=== PATIENT | male | born 1960 | race Caucasian/White ===

== ENCOUNTER 2019-02-03 08:49 | Outpatient (RCR) | payer OTHER, SELFPAY ==
--- NOTE | 2019-02-03 09:50 | PTOPEVAL ---
Thank you for referring this patient to [facility][Note 3]. Please review, sign, date and return this plan of care GLADYS. I agree with and certify that the following plan of care is medically necessary. Referring Physician Date Admitting Provider: Attending Provider: PHYSICIAN NOT ON STAFF Referring Provider: *PT Outpatient Evaluation Start: 02/03/19 09:03 Freq: Status: Active Protocol: Document 02/03/19 09:04 SAILAJA (Rec: 02/03/19 09:25 SAILAJA [email or web address]) Therapy Assessment Status Assessment Status Assessment Status Evaluation Evaluation Information Problem Diagnosis s/p right shoulder Onset 01/08/19 Subjective Information Pt. underwent surgery on 01/08 Query Text:As Reported By Patient to remove bone spurs and Family patch the rotator cuff. He is currenlty on a 5# restriction . He reports pain comes and goes in the right shoulder. He states that his goal for therapy is to be able to lift the arm overhead with little pain. 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 . He reports he worked till surgery date. He is currently off work. Pain Assessment Pain Scale Pain Scale Used Numeric (1 - 10) Self Report Pain Assessment Right Shoulder(s) Reported Pain Level 4 Pain Description Aching Pain Frequency Continuous Current Pain Intensity 4 Lowest Pain Intensity 4 Greatest Pain Intensity 6 Other Pain Aggravating Factors any movement away from his body Pain Relief Interventions Used By Inactivity/Rest Patient Pain Score Pain Score 4: Self Report Upper Extremity Range of Motion General Upper Extremity Range of Motion Gross Upper Extremity Range of Motion right shoulder flexion AROM Com
--- NOTE | 2019-03-14 08:47 | PTOPEVAL ---
Thank you for referring this patient to [facility]. Please review, sign, date and return this plan of care GLADYS. I agree with and certify that the following plan of care is medically necessary. Referring Physician Date Admitting Provider: Attending Provider: PHYSICIAN NOT ON STAFF Referring Provider: *PT Outpatient Evaluation Start: 02/03/19 09:03 Freq: Status: Active Protocol: Document 03/14/19 08:20 SAILAJA (Rec: 03/14/19 08:41 SAILAJA [email or web address]) Therapy Assessment Status Assessment Status Assessment Status Re-evaluation Evaluation Information Problem Diagnosis s/p right shoulder surgery Onset 01/08/19 Subjective Information Pt. denies pain. He reports Query Text:As Reported By Patient/ that he still has weight Family restrictions and states that he still has some weakness. He reports that he would like to continue treatment in order to improve u.e. strength. Pain Assessment Self Report Self Report Pain Level 0 Pain Score Pain Score 0: Self Report Upper Extremity Range of Motion General Upper Extremity Range of Motion Gross Upper Extremity Range of Motion right shoulder flexion AROM Comments 160 degrees, right shoulder ER 90 degrees, right shoulder IR 70 degrees. Upper Extremity Muscle Strength Testing General Upper Extremity Strength Gross Upper Extremity Strength Comments right shoulder flexion 4/5, right shoulder abduction 4/5, right shoulder ER 4/5 PT Clinical Summary Clinical Summary Protocol: PTEVCODE Clinical Summary Pt. demonstrates excellent progress in regards to ROM and strength. Continue to note weakness at the right proximal u.e. Goals continue to be progressed toward and pt. has met majority of goals. New goals established on this date and recommend continued treatment to further imrpove strength to transition pt. back to work related duties. PT Services Indicated Yes Rehabilitation Potential Excellent Potential Barriers to Goal Achievements None Support Requirements For Optimal None [place] Patient/Caregiver Informed of Benefits/ Yes Risks of Rehabilitation Patient/Caregiver Participated in Plan Yes of Care
--- NOTE | 2019-03-28 08:23 | PCPTNOTE ---
03/28/29- pt cancelled apt. reason not stated.-.
--- NOTE | 2019-04-15 10:56 | PTOPEVAL ---
Thank you for referring this patient to [facility]. Please review, sign, date and return this plan of care GLADYS. I agree with and certify that the following plan of care is medically necessary. Referring Physician Date Admitting Provider: Attending Provider: PHYSICIAN NOT ON STAFF Referring Provider: *PT Outpatient Evaluation Start: 02/03/19 09:03 Freq: Status: Active Protocol: Document 04/15/19 10:00 [facility] (Rec: 04/15/19 10:55 [facility] [id number]) Therapy Assessment Status Assessment Status Assessment Status Discharge Evaluation Information Problem Diagnosis s/p R shoulder surgery Additional Evaluation Detail quick dash = 0% functional deficits Subjective Information mr. irene reports he feels Query Text:As Reported By Patient/ good this date. he reports Family no pain in the R shoulder for more than 2-3 weeks. he reports he has been cleared to return to work beginning next week. Pain Assessment Timing of Pain Assessment Timing of Pain Assessment Assessment Self Report Self Report Pain Level 0 Pain Score Pain Score 0: Self Report Upper Extremity Range of Motion General Upper Extremity Range of Motion Gross Upper Extremity Range of Motion 155 degrees arom R shoulder Comments flexion 90 degrees arom R shoulder ER functional reach to the lwoer cervical spine and lower thoracic spine with the R UE. Upper Extremity Muscle Strength Testing General Upper Extremity Strength Gross Upper Extremity Strength Comments 5/5 R shoulder and elbow strength patient lifts 22.5lb crate with ease and safe mechanicsfrom floor to waist and carries for 5 minutes PT Clinical Summary Clinical Summary Protocol: PTEVCODE Clinical Summary mr. irene tolerates therapy well this date. as of today, he has been cleaed by his MD to return to work beginning next week. he presents with 5/ 5 R shoulder and elbow strength and funcitonal lifting and carrying ability. he has met all goals, and would do well to DC skilled PT at this time and continue with HEP ind
== END 2019-04-15 13:08 | disposition home or self-care (01) ==
LOC: CHSPT 08:49
DX: Z47.89 Encounter for other orthopedic aftercare (principal)
CPT/HCPCS: 97014; 97110; 97140; 97161; 97530; G0283

== ENCOUNTER 2019-12-28 09:24 | Emergency (ER) | payer OTHER, SELFPAY ==
--- NOTE | ~2019-12-28 | XR_ITS ---
EXAMINATION: XR ankle RT min 3V INDICATION: Right ankle pain, prior ankle fracture TECHNIQUE: Four views of the right ankle are obtained. 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 No acute fracture is identified. Bone alignment is normal. Soft tissue swelling is seen surrounding the ankle. Dorsal and plantar mohan caneal enthesophytes are noted. IMPRESSION: 1. Sequela of prior ankle fractures without acute osseous abnormality identified. Reviewed, dictated and finalized at location A. S [employer] IMPRESSION: 1. Sequela of prior ankle fractures without acute osseous abnormality kazie celeste
[2019-12-28 09:30] VITALS: BP 136/90; PULSE 67; RESP 14; TEMP 36.9; O2SAT 99
--- NOTE | 2019-12-28 10:08 | ED.LOWEXIN ---
HPI - Extremity Injury (Lower) General Chief Complaint: Extremity Injury, Lower Stated Complaint: right ankle painful/swollen Time Seen by Provider: 12/28/19 09:52 Source: patient and RN notes reviewed Mode of arrival: ambulatory Limitations: no limitations History of Present Illness HPI Narrative: Patient presents today complaining of right-sided ankle pain. He rolled his ankle on a block yesterday at 1630. He has been ambulatory for small amounts of time since then. History of fracture x2. Last fracture was approximately 20 years ago. Has not required surgery with either previous fracture. Denies numbness or tingling in the leg or foot. Currently rates pain 3/10. He has been wearing an ankle brace. He has not tried ice or any [id number] medications prior to arrival. MD complaint: ankle injury Related Data Home Medications Medication Instructions Recorded Confirmed amlodipine 10 mg PO DAILY 12/28/19 12/28/19 hydralazine 25 mg PO TID 12/28/19 12/28/19 lisinopril 20 mg PO DAILY 12/28/19 12/28/19 metoprolol succinate 12.5 mg PO DAILY 12/28/19 12/28/19 simvastatin 20 mg PO DAILY 12/28/19 12/28/19 Allergies Allergy/AdvReac Type Severity Reaction Status Date / Time iohexol Allergy Redness of Verified 12/28/19 09:41 [From contrast - CT, X-RAY] Skin Penicillins Allergy Unknown Verified 12/28/19 09:40 Review of Systems Review of Systems: Narrative: CONSTITUTIONAL: Denies body aches, fever, chills, or sweats. EYES: Denies visual changes, redness, or discharge. ENT: Denies rhinorrhea, congestion, sore throat, or otalgia. CARDIOVASCULAR: Denies chest pain, palpitations, or edema. RESPIRATORY: Denies cough or dyspnea. GASTROINTESTINAL: Denies abdominal pain, nausea, vomiting, or diarrhea. GENITOURINARY: Denies dysuria or hematuria. SKIN: Denies rash, itching, or wounds. MUSCULOSKELETAL: Denies back pain, or myalgia. + Right ankle pain NEUROLOGIC: Denies headache, numbness, tingling, or weakness. PSYCH: Denies depression or anxiety. [facility] Past Medical History Medical History (Updated 12/28/19 @ 10:13 by Hortencia Torres, SALES DONOR RECRUITMENT REPRESENTATIVE, ) Hyperlipidemia Hypertension Comments At time of signature, I have reviewed and agree with nursing past medical, surgical, social and family history unless otherwise noted. Please see nursing chart for further information. There is no relevant family history pertinent to the presenting complaint Exam Narrative: Exam Narrative: GENERAL: Well-appearing, well-nourished, and in no acute distress. HEAD: Normocephalic, atraumatic. EYES: EOMI. No redness or drainage. Conjunctivae normal. ENT: Mucous membranes pink and moist. NECK: Normal AROM. CHEST: No respiratory distress. EXTREMITIES: Right ankle: No bony tenderness to the medial or lateral malleolus. Soft tissue tenderness just anterior and inferior to the lateral malleolus with mild edema. No posterior tenderness. No tenderness to the foot. Distal sensation intact. Capillary refill normal. Pedal pulse normal. Flexion extension of the ankle is not painful, but patient describes it is stiff. Internal and external rotation of the ankle elicits some pain. SKIN: Warm, dry, no rash. Capillary refill normal. Normal skin turgor. NEURO: No focal deficits. Alert and oriented x3. Gait steady. PSYCH: Normal affect. No signs of depression or anxiety. Course Vital Signs Vital signs: Vital Signs Temperature 98.4 F 12/28/19 09:30 Pulse Rate 67 12/28/19 09:30 Respiratory Rate 14 12/28/19 09:30 Blood Pressure 136/90 12/28/19 09:30 Pulse Oximetry 99 12/28/19 09:30 Temperature 98.4 F 12/28/19 09:30 Pulse Rate 67 12/28/19 09:30 Respiratory Rate 14 12/28/19 09:30 Blood Pressure 136/90 12/28/19 09:30 Pulse Oximetry 99 12/28/19 09:30 Reviewed. Pt has been instructed to follow up with his PCP regarding his elevated blood pressure today. MDM - Extremity Injury (Lower) Differential Diagnosi
== END 2019-12-28 10:22 | disposition home or self-care (01) ==
PROVIDERS: Emergency Provider Nurse Practitioner; PCP Physician Assistant
DX: S93.401A Sprain of unspecified ligament of right ankle, initial encounter (principal); X50.9XXA Other and unspecified overexertion or strenuous movements or postures, initial encounter; E78.5 Hyperlipidemia, unspecified; I10 Essential (primary) hypertension
CPT/HCPCS: 73610; 99213; G0463

== ENCOUNTER 2021-01-03 14:49 | Outpatient (RCR) | payer OTHER, SELFPAY ==
--- NOTE | 2021-01-03 15:46 | PTOPEVAL ---
Thank you for referring Reginaldo Alejandra to [facility].? The patient is scheduled to be seen for therapy? _1___x/week for 4 visits. Please review, sign, date and return this plan of care GLADYS. I agree with and certify that the following plan of care is medically necessary. Referring Physician Date Admitting Provider: Attending Provider: Sanchez Urbano, Referring Provider: *PT Outpatient Evaluation Start: 01/03/21 15:01 Freq: Status: Active Protocol: Document 01/03/21 15:04 SAILAJA (Rec: 01/03/21 15:46 SAILAJA [id number]) Therapy Assessment Status Assessment Status Assessment Status Evaluation Outpatient Past Medical History Cardiovascular History Hx Hypercholesterolemia Yes Hx Hypertension Yes Gastrointestinal History Hx Cholecystectomy Yes Hx Hernia Yes: umbilical Musculoskeletal History Hx Joint Replacement Yes: right partial knee replacement Hx Orthopedic Surgery Yes: bilateral shoulder Hx Spinal Surgery Yes: lumbar HEENT History Hx Tonsillectomy Yes Other History Hx Cancer Yes: tonsil Evaluation Information Problem Diagnosis left knee pain Onset 06/03/20 Subjective Information Pt. reports that he noticed a Query Text:As Reported By Patient/ gradual onset of pain about 7 Family months ago. He reports he underwent MRI that revealed arthritis and meniscus tear. Pt. reports pain is increased with walking and standing. He states that stairs are most difficult. He reports that he only has a small amount of steps at home. He reports that he cannot stand very long due to pain. His goal for therapy is to prolong having any knee replacement. Diagnostic Tests X-Rays For This Problem Yes Prior Level of Function Activity Level (Last 3 Months) Activity of Daily Living Ability Independent Indoor/Home Mobility Independent Community Mobility Independent Stairs Ability Independent Functional Cognition (Planning, Shopping Independent , Taking Medications) Cooking Yes Cleaning Yes Laundry Yes Shopping Yes Driving Yes Comments Additional Prior Level of Function Pt. reports recent epsiodes of
== END 2021-01-24 13:59 | disposition home or self-care (01) ==
LOC: CHSPT 14:49
PROVIDERS: Visit Provider Orthopaedic Surgery
DX: M17.12 Unilateral primary osteoarthritis, left knee (principal)
CPT/HCPCS: 97014; 97110; 97112; 97161; G0283

== ENCOUNTER 2021-03-04 08:04 | Outpatient (CLI) | payer OTHER, SELFPAY ==
--- NOTE | 2021-03-12 15:52 | WPDSLEEPSTUD ---
Sleep Study Date of Study: 03/04/21 Ordering Provider: Shubham Siddiqui MD Interpreting Physician: Pilar Galdamez MD Sleep Study Type: Split Polysomnogram Height: 1.78 m Weight: 119.748 kg Body Mass Index: 37.8 Neck Circumference (inches): 16 [place]: 10 Reason for Sleep Study Hypertension, occasionally falls asleep at work Sleep History Reginaldo Alejandra is a 60 year old man with hypertension. He rarely awakens at night with heartburn, belching or coughing. He does not snore and he does not snore loudly enough that others complain. He denies having difficulty sleeping with the cold. He rarely wakes up gasping for breath at night. He does not have breathing problems at night reported to him by others. He does not sweat excessively at night. He occasionally notices his heart pounding or beating irregularly night. He rarely falls asleep during the day, rarely falls asleep involuntarily and never falls asleep while driving. He does not have loss of muscle tone was strong emotion. He does not have daytime difficulties due to excessive sleepiness. He does not feel paralyzed on waking or falling asleep. He rarely has vivid dreamlike scenes upon awakening or falling asleep. He does not feel afraid to go to sleep. He does not have nightmares. He rarely remembers his dreams. He rarely has racing thoughts. He does not feel sad, depressed or anxious. He rarely has muscular tension. He does not notice parts of his body jerking and he does not kick at night. He rarely has crawling and aching feelings in his legs, rarely has any kind of leg pain at night. He does not have morning jaw pain. He does not grind his teeth during sleep. He occasionally has bothered by pain during the day. He rarely is awakened by pain during the night. He rarely wakes up feeling stiff in the morning with sore or achy muscles. He rarely wakes up with pain in the neck and spine. He has headaches, fatigue and dizziness. He does not have morning headaches. He has renal artery stenosis. 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 Petey Lawrence who requested a sleep study in 2019 but this never happened. Another sleep study of a home sleep test was ordered by HENRIQUE Marx. He tried a home sleep test which did not work and he was referred to in lab sleep study at [facility] but during COVID this was cancelled. Normal bedtime 10:00 p.m. falling asleep within a few minutes. He wakes at 5:20 a.m.. Weekend schedule is similar, goes to bed at 10:00 p.m. wakes at 6:30 a.m.. He estimates getting 6 to 6-1/2 hours of sleep at night he takes naps in the afternoon or evening. A short nap may be refreshing. Most of the time he feels good in the morning. Habits: Caffeine 132 oz tea daily. No alcohol or recreation drugs. 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 Surgical History Surgical History (Updated 03/14/21 @ 09:47 by Pilar Galdamez MD) Hx of tonsillectomy right side, 2003, due to cancer Social History Social History Smoking status: Never smoker Medications Home Medications Medication Instructions Recorded Confirmed Type amlodipine 10 mg PO DAILY 12/28/19 02/07/21 History hydralazine 25 mg PO TID 12/28/19 02/07/21 History lisinopril 20 mg PO DAILY 12/28/19 02/07/21 History metoprolol succinate 12.5 mg PO DAILY 12/28/19 02/07/21 History simvastatin 20 mg PO DAILY 12/28/19 02/07/21 History eszopiclone 2 mg tablet 2 mg PO QHS #1 tablet 02/07/21 02/07/21 Rx vitamins A,C,N-ujpk-omivhm 14,320 1 cap PO QAM AND QPM 02/07/21 02/07/21 History unit-226 mg-200 unit capsule Sleep Procedure This test was performed using the [employer] multiple channel system including EOG, EEG, submental EMG, EKG, nasal and oral airflow using thermistors a
[2021-03-14 09:34] VITALS: BMI 37.8
== END 2021-03-05 07:03 | disposition home or self-care (01) ==
PROVIDERS: PCP Physician Assistant; Visit Provider Internal Medicine Pulmonary Disease
DX: G47.10 Hypersomnia, unspecified (principal); G47.33 Obstructive sleep apnea (adult) (pediatric)
CPT/HCPCS: 95811

== ENCOUNTER 2021-05-02 07:45 | Outpatient (RCR) | payer OTHER, SELFPAY ==
--- NOTE | 2021-05-02 08:55 | PTOPEVAL ---
Thank you for referring Reginaldo Alejandra to [facility].? The patient is scheduled to be seen for therapy? ____x/week for ___ weeks. Please review, sign, date and return this plan of care GLADYS. I agree with and certify that the following plan of care is medically necessary. Referring Physician Date Admitting Provider: Attending Provider: Sanchez Urbano, Referring Provider: *PT Outpatient Evaluation Start: 05/02/21 07:39 Freq: Status: Active Protocol: Document 05/02/21 07:50 ACR (Rec: 05/02/21 08:55 [facility] [id number]) Therapy Assessment Status Assessment Status Assessment Status Evaluation Outpatient Past Medical History Cardiovascular History Hx Hypercholesterolemia Yes Hx Hypertension Yes Gastrointestinal History Hx Cholecystectomy Yes Hx Hernia Yes: umbilical Musculoskeletal History Hx Joint Replacement Yes: right partial knee replacement Hx Orthopedic Surgery Yes: bilateral shoulder Hx Spinal Surgery Yes: lumbar HEENT History Hx Tonsillectomy Yes Other History Hx Cancer Yes: tonsil Evaluation Information Problem Diagnosis L TKA Onset 04/14/21 Subjective Information Patient states that he Query Text:As Reported By Patient/ underwent a TKA on 04/14/21 and Family did not have any issues. Patient states he has not had any home health since the surgery. Patient states that he is still very weak and unstable. He states that he is not taking any pain pills. He states that he is taking Tylenol to help with some of the pain. He states he is unable to walk or stand for a period of time, along with navigating steps without pain. Patient states that his goal for therapy is to return to work and be semi-normal. 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
--- NOTE | 2021-06-09 13:39 | PTOPEVAL ---
Thank you for referring Reginaldo Alejandra to [facility].? The patient is scheduled to be seen for therapy? ____x/week for ___ weeks. Please review, sign, date and return this plan of care GLADYS. I agree with and certify that the following plan of care is medically necessary. Referring Physician Date Admitting Provider: Attending Provider: Sanchez Urbano, Referring Provider: *PT Outpatient Evaluation Start: 05/02/21 07:39 Freq: Status: Active Protocol: Document 06/09/21 12:35 [facility] (Rec: 06/09/21 13:39 [facility] [id number]) Therapy Assessment Status Assessment Status Assessment Status Re-evaluation Outpatient Past Medical History Cardiovascular History Hx Hypercholesterolemia Yes Hx Hypertension Yes Gastrointestinal History Hx Cholecystectomy Yes Hx Hernia Yes: umbilical Musculoskeletal History Hx Joint Replacement Yes: right partial knee replacement Hx Orthopedic Surgery Yes: bilateral shoulder Hx Spinal Surgery Yes: lumbar HEENT History Hx Tonsillectomy Yes Other History Hx Cancer Yes: tonsil Evaluation Information Problem Diagnosis L TKA Onset 04/14/21 Additional Evaluation Detail LEFS = 45% functionally declined Subjective Information patient reports he feels Query Text:As Reported By Patient/ Alright this date. he reports Family he is still concerned about his stair ambulation, and would like to continue skilled PT with focus to achieve pain free and normal stair ambulation performance. Pain Assessment Timing of Pain Assessment Timing of Pain Assessment Assessment Pain Scale Pain Scale Used Numeric (1 - 10) Self Report Pain Assessment Left Knee(s) Reported Pain Level 1 Greatest Pain Intensity 4 Pain Score Pain Score 1: Self Report Interventions Used Interventions Used By Clinicians Activity or ADL's,Compression Pump,Education,Exercise,Ice Lower Extremity Range of Motion General Lower Extremity Range of Motion Gross Lower Extremity Range of Motion 0-125 degrees arom L knee Comments mobility Lower Extremity Muscle Strength Testing General Lower Extremity Strength Gross Lower Extremity Strength 5/5 L hip flex 5/5 L knee flex 5/5 L knee ext 5/5 L ankle DF Muscle Length Testing Muscle Length Testing Left Hamstring Length 5 Query Text:(90 - 90 Positi
--- NOTE | 2021-06-28 09:47 | PTOPEVAL ---
Thank you for referring Reginaldo Alejandra to [facility].? The patient is scheduled to be seen for therapy? ____x/week for ___ weeks. Please review, sign, date and return this plan of care GLADYS. I agree with and certify that the following plan of care is medically necessary. Referring Physician Date Admitting Provider: Attending Provider: Sanchez Urbano, Referring Provider: *PT Outpatient Evaluation Start: 05/02/21 07:39 Freq: Status: Active Protocol: Document 06/28/21 09:00 [facility] (Rec: 06/28/21 09:47 [facility] [email or web address]) Therapy Assessment Status Assessment Status Assessment Status Discharge Outpatient Past Medical History Cardiovascular History Hx Hypercholesterolemia Yes Hx Hypertension Yes Gastrointestinal History Hx Cholecystectomy Yes Hx Hernia Yes: umbilical Musculoskeletal History Hx Joint Replacement Yes: right partial knee replacement Hx Orthopedic Surgery Yes: bilateral shoulder Hx Spinal Surgery Yes: lumbar HEENT History Hx Tonsillectomy Yes Other History Hx Cancer Yes: tonsil Evaluation Information Problem Diagnosis L TKA Onset 04/14/21 Additional Evaluation Detail LEFS = 27% functionally declined Subjective Information patient reports he feels good Query Text:As Reported By Patient/ this date. he reports he Family does have some tightness in the knee, and some pain/ tightness that is still increased with long distance/ time walking. he reports however, he was able to go to the zoo over the weekend and walk with his family. he reports stairs are eaiser, and he is ready to DC skilled PT this date. Pain Assessment Timing of Pain Assessment Timing of Pain Assessment Assessment Pain Scale Pain Scale Used Numeric (1 - 10) Self Report Pain Assessment Left Knee(s) Reported Pain Level 1 Pain Score Pain Score 1: Self Report Interventions Used Interventions Used By Clinicians Activity or ADL's,Compression Pump,Education,Exercise,Ice Lower Extremity Muscle Strength Testing General Lower Extremity Strength Gross Lower Extremity Strength 5/5 L knee strength Gait Assessment Gait Pattern Assessment Gait Pattern No Deviations/Normal 6 Minute Walk Total Distance (feet) 1,250 6 Minute Walk Gait Spe
== END 2021-06-28 09:43 | disposition home or self-care (01) ==
LOC: CHSPT 07:45
PROVIDERS: PCP Physician Assistant; Visit Provider Orthopaedic Surgery
DX: Z96.652 Presence of left artificial knee joint (principal)
CPT/HCPCS: 97016; 97110; 97116; 97161; 97530

== ENCOUNTER 2024-03-26 08:58 | Outpatient (RCR) | payer OTHER, SELFPAY ==
--- NOTE | 2024-03-26 09:57 | OPREHPOC ---
Outpatient Therapy Plan of Care This is a Multidisciplinary Plan of Care that may contain components documented by all disciplines (PT, OT, and ST.) PT Problem 1 PT Problem #1 Knowledge Deficit PT Goal 1 Goal / Goal Update The patient will be independent in a home exercise program. Target Visit 2 PT Problem 2 PT Problem #2 Pain PT Goal 1 Goal / Goal Update The patient will report no greater than 2/10 right shoulder pain with lifting household items and donning a coat. Target Visit 6 PT Problem 3 PT Problem #3 Impaired Functional Mobility PT Goal 1 Goal / Goal Update The patient will demonstrate 20% or less self perceived disability per the Quick DASH questionnaire. Target Visit 6 PT Goal 2 Goal / Goal Update The patient will demonstrate the ability to lift 3 # overhead with 2/10 or less right shoulder pain. Target Visit 12 PT Problem 4 PT Problem #4 Impaired Range of Motion PT Goal 1 Goal / Goal Update The patient will demonstrate at least 140 degrees of right shoulder flexion AROM to improve overhead reaching. The patient will demonstrate at least 120 degrees of right shoulder abduction AROM without a painful arc. Target Visit 6 PT Problem 5 PT Problem #5 Impaired Strength PT Goal 1 Goal / Goal Update The patient will demonstrate at least 4/5 right shoulder strength without pain elicited to improve lifting and carrying ability. Target Visit 12
--- NOTE | 2024-03-26 09:57 | PTOPEVAL1 ---
Assessment and note entered by Anat Weaver, PT Evaluation Information Assessment Status Evaluation ICD-10 Condition Codes (PT) Pain in right shoulder M25.511 Subjective Information Reginaldo Alejandra reports he felt a pop in his right shoulder around 03/04/24 when he was putting his coat on. He has been having pain in the front of the shoulder with donning a coat, pulling blankets up, and reaching out. He notes if he does not use his arm he does not have pain however, it is his dominant arm. He went to the doctor last week and was told he may have injured his rotator cuff. He was referred to PT. He does report a past medical history of 2 other right shoulder surgeries for a distal clavicle excision and then for a clean up. He has been avoiding lifting anything since the injury. Reported Pain Level Pain Score 3: Self Report Assessment PT Clinical Summary Reginaldo Alejandra presents with right shoulder pain after hearing a pop when he donned his coat with the right arm in an abducted and externally rotated position around 03/04/24. He is having difficulty with lifting the right arm forward or to the side, donning coats, pulling, and lifting. He objectively demonstrates tenderness on the anterior right shoulder, decreased and painful right shoulder AROM, decreased right shoulder strength, positive special tests consistent with tendonitis in the supraspinatus, shoulder impingement, and labral involvement. He will benefit from skilled PT to address these limitations. Plan of Care Interventions Electrical Stimulation,Hot Pack/Cold Pack,Manual Therapy,Neuro Re-education,Patient/Caregiver Education,Therapeutic Activities,Therapeutic Exercise PT Services Indicated Yes Treatment Frequency and 2 times per week for 6 visits Duration These treatments will address the objective and functional deficits as defined above. The patient will be advanced safely and appropriately in order for the patient to progress towards his/her prior level of function. Additional exercises will be introduced and as well as a comprehensive home exercise program upon discharge, if needed, ?to ensure carryover of functional gains achieved in the clinic. This treatment plan has been reviewed and agreement upon by the patient.
--- NOTE | 2024-04-17 09:05 | OPREHPOC ---
Outpatient Therapy Plan of Care This is a Multidisciplinary Plan of Care that may contain components documented by all disciplines (PT, OT, and ST.) PT Problem 1 PT Problem #1 Knowledge Deficit PT Goal 1 Goal / Goal Update The patient will be independent in a home exercise program. Target Visit 2 Progress Met PT Problem 2 PT Problem #2 Pain PT Goal 1 Goal / Goal Update The patient will report no greater than 2/10 right shoulder pain with lifting household items and donning a coat. Target Visit 12 Progress Not Met PT Problem 3 PT Problem #3 Impaired Functional Mobility PT Goal 1 Goal / Goal Update The patient will demonstrate 20% or less self perceived disability per the Quick DASH questionnaire. Target Visit 6 Progress Met PT Goal 2 Goal / Goal Update The patient will demonstrate the ability to lift 3 # overhead with 2/10 or less right shoulder pain. Target Visit 12 Progress Not Met PT Problem 4 PT Problem #4 Impaired Range of Motion PT Goal 1 Goal / Goal Update The patient will demonstrate at least 140 degrees of right shoulder flexion AROM to improve overhead reaching. The patient will demonstrate at least 120 degrees of right shoulder abduction AROM without a painful arc. Target Visit 12 Progress Partially Met PT Problem 5 PT Problem #5 Impaired Strength PT Goal 1 Goal / Goal Update The patient will demonstrate at least 4/5 right shoulder strength without pain elicited to improve lifting and carrying ability. Target Visit 12 Progress Partially Met
--- NOTE | 2024-04-17 09:06 | PTOPREEVAL ---
Assessment and note entered by JT File, PT Evaluation Information Assessment Status Re-evaluation ICD-10 Condition Codes (PT) Pain in right shoulder M25.511 Subjective Information patient reports the shoulder is alright in general. he reports he has slight pain/discomfort in it today. he reports it has its moments where it is better. he reports he feels no pain when working at his waist level, but at shoulder level or above his pain increases. Reported Pain Level Pain Score 1: Self Report Pain Score 0: Self Report Assessment PT Clinical Summary mr. irene presents to skilled PT for his 6th skilled PT visit today. he displays significant improvements in R shoulder rom, strength, and decreased pain. he has met several goals for skilled PT, but also continues to have functional, rom, and strength deficits that he would benefit from continued skilled PT to return to full prior level functional activity performance/quality of life. Plan of Care Interventions Electrical Stimulation,Hot Pack/Cold Pack,Manual Therapy,Neuro Re-education,Patient/Caregiver Education,Therapeutic Activities,Therapeutic Exercise PT Services Indicated Yes Treatment Frequency and continue skilled PT 2x weekly for 6 more visits Duration These treatments will address the objective and functional deficits as defined above. The patient will be advanced safely and appropriately in order for the patient to progress towards his/her prior level of function. Additional exercises will be introduced and as well as a comprehensive home exercise program upon discharge, if needed, ?to ensure carryover of functional gains achieved in the clinic. This treatment plan has been reviewed and agreement upon by the patient.
--- NOTE | 2024-05-08 09:56 | OPREHPOC ---
Outpatient Therapy Plan of Care This is a Multidisciplinary Plan of Care that may contain components documented by all disciplines (PT, OT, and ST.) PT Problem 1 PT Problem #1 Knowledge Deficit PT Goal 1 Goal / Goal Update The patient will be independent in a home exercise program. Target Visit 2 Progress Met PT Problem 2 PT Problem #2 Pain PT Goal 1 Goal / Goal Update The patient will report no greater than 2/10 right shoulder pain with lifting household items and donning a coat. Target Visit 12 Progress Met PT Problem 3 PT Problem #3 Impaired Functional Mobility PT Goal 1 Goal / Goal Update The patient will demonstrate 20% or less self perceived disability per the Quick DASH questionnaire. Target Visit 6 Progress Met PT Goal 2 Goal / Goal Update The patient will demonstrate the ability to lift 3 # overhead with 2/10 or less right shoulder pain. Target Visit 12 Progress Not Met PT Problem 4 PT Problem #4 Impaired Range of Motion PT Goal 1 Goal / Goal Update The patient will demonstrate at least 140 degrees of right shoulder flexion AROM to improve overhead reaching. The patient will demonstrate at least 120 degrees of right shoulder abduction AROM without a painful arc. Target Visit 12 Progress Met PT Problem 5 PT Problem #5 Impaired Strength PT Goal 1 Goal / Goal Update The patient will demonstrate at least 4/5 right shoulder strength without pain elicited to improve lifting and carrying ability. Target Visit 12 Progress Met
--- NOTE | 2024-05-08 09:56 | PTOPDC ---
Assessment and note entered by Anat Weaver, PT Evaluation Information Assessment Status Discharge ICD-10 Condition Codes (PT) Pain in right shoulder M25.511 Onset 03/04/24 Subjective Information Reginaldo Alejandra reports his right shoulder is doing much better. He notes that he has a lot more mobility and he can perform daily activities without difficulty. He does note some pain and stiffness this am but it is all over the shoulder from sleeping wrong not a sharp pain in the front of the shoulder like he used to have. He feels he has improved 90% overall and is comfortable with continuing home exercises. Reported Pain Level Pain Score 1: Self Report Assessment PT Clinical Summary Reginaldo Alejandra has completed 12 skilled PT visits for right shoulder pain. He is reporting a 90% overall improvement in the right shoulder since initiating PT. He is no longer limited with ADLs and reports occasional soreness when he lays on the right shoulder the wrong way or reaches back for the seatbelt. He objectively demonstrates improved right shoulder AROM to normal ranges, improved right shoulder strength, and negative special tests. He has met all goals and will be discharged to an independent [facility]. Plan of Care PT Services Indicated No
== END 2024-05-08 11:15 | disposition home or self-care (01) ==
LOC: CHSPT 08:58
PROVIDERS: Visit Provider Physician Assistant
DX: M25.511 Pain in right shoulder (principal)
CPT/HCPCS: 97014; 97110; 97112; 97161; 97530; 97750; G0283

== ENCOUNTER 2024-04-20 13:45 | Emergency (ER) | payer OTHER, SELFPAY ==
[2024-04-20 13:45] VITALS: BP 140/96; PULSE 71; RESP 20; TEMP 36.8; O2SAT 100
--- OUTSIDE RECORDS SUMMARY | 2024-04-20 13:48 | XMS_ITS | Clinical Summary ---
Author Organization [facility] Address [address] [place] [address] Care Team Providers Care Entry Level Programmer Name Role Phone Howard Gonzalez Primary Care Provider [phone] Kain Ferrera Unavailable [phone] Gael Jiménez MD Unavailable [phone] Allergies Active Allergy Reactions Criticality Noted Date Comments Iodinated Contrast Media Rash Medium 04/14/2021 Iodine Hives,Other (See comments),Rash Medium 01/22/2017 Pt states he turned pink Penicillins Other (See comments),Unknown Low 01/22/2017 Childhood unsure of reaction Medications aspirin 81 mg enteric coated tablet Take 1 tablet (81 mg total) by mouth 2 (two) times a day for 28 days Take twice daily for 28 days after surgery starting on post op day 1 and then resume once per day 56 tablet 2 Active furosemide (LASIX) 20 mg tablet TAKE 1 TABLET BY MOUTH EVERY DAY 30 tablet 4 Active amLODIPine (NORVASC) 5 mg tabletIndicati ons:Essential hypertension,H ypercholestero lemia Take 1 tablet (5 mg total) by mouth daily 90 tablet 3 4 025 Active simvastatin (ZOCOR) 20 mg tablet TAKE 1 TABLET BY MOUTH EVERY DAY 90 tablet 2 4 Active lisinopriL (PRINIVIL,ZEST RIL) 40 mg tablet TAKE 1 TABLET BY MOUTH EVERY DAY AT NIGHT 90 tablet 3 5 Active metoprolol XL (TOPROL-XL) 25 mg extended release tabletIndicati ons:Essential hypertension,H ypercholestero lemia TAKE 1 TABLET (25 MG TOTAL) BY MOUTH DAILY. 90 tablet 3 5 Active lisinopriL (PRINIVIL,ZEST RIL) 40 mg tablet Take 1 tablet (40 mg total) by mouth nightly 025 Discontinued metoprolol XL (TOPROL-XL) 25 mg extended release tabletIndicati ons:Essential hypertension,H ypercholestero lemia Take 0.5 tablets (12.5 mg total) by mouth daily 45 tablet 3 4 025 Discontinued Active Problems Problem Noted Date Diagnosed Date HTN (hypertension), benign 02/10/2023 Cardiac arrest 12/22/2022 Abnormal stress test 11/16/2022 DDD (degenerative disc disease), lumbar 01/13/20 Degenerative lumbar spinal stenosis 01/12/2022 Snapping hip syndrome, left 12/14/2021 Congestive heart failure (CMS/HCC) 09/18/2021 Middle insomnia 09/18/2021 Migraine 09/18/2021 Upper respiratory infection 09/18/2021 Primary osteoarthritis of left knee 03/29/2021 Overview (03/29/2021): Added automatically from request for surgery [id number] Restless sleeper 01/30/2020 Morning headaches 01/30/2020 Impingement syndrome of right shoulder 9 Overview (12/19/2018): Added automatically from request for surgery [id number] Arthritis of right acromioclavicular joint 12/19 Overview (12/19/2018): Added automatically from request for surgery [id number] Biceps tendinitis on right 12/19/2018 Overview (12/19/2018): Added automatically from request for surgery [id number] Primary osteoarthritis of right knee 03/15/2018 Overview (03/15/2018): Added automatically from request for surgery [id number] Complex tear of medial menis cus of right knee as current injury 10/25/2017 Overview (10/25/2017): Added automatically from request for surgery [id number] JESUS (obstructive sleep apnea) 01/24/2017 Renal artery stenosis 11/02/2016 Obesity 10/14/2016 Obesity with body mass index 30 or greater 10/13 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 Cephalalgia 08/31/2015 Essential hypertension 08/31/2015 Hypercholesterolemia 08/31/2015 Calculus of kidney 02/29/2012 Immunizations Immunization Administration Dates Next Due Influenza, Quadrivalent, Spl it, Preservative Free, Intramuscular 04/04/2018 Surgical History Surgery Date Site/Laterality Comments OTHER SURGICAL HISTORY Right and Left Shoulders TONSILLECTOMY Tonsillectomy CHOLECYSTECTOMY Cholecystectomy OTHER SURGICAL HISTORY cellutitus/abcess groin LAMINECTOMY laminectomy HERNIA REPAIR Hernia repair SHOULDER ARTHROSCOPY Right SHOULDER ARTHROSCOPY Left KNEE ARTHROSCOPY Right KNEE ARTHROPLASTY Right SHOULDER ARTHROSCOPY Right Medical History Medical History Date Comments Hx Other Medical Tonsil Cancer Hypertension Hypertension Hx Other Medical tonsil cancer; Comments: PLD 12/23/2013 - Hypercholesteremia GERD (gastroesophageal reflux disease) Cancer (CMS/HCC) (HCC) Tonsils, chemo and radiation 2003 Kidney stone kidney stone Sleep apnea no c-pap Cough hx throat cancer Family History Medical History Relation Name Comments Heart disease Brother 1 Heart disease; Cancer Brother 2 Family history of cancer - (Added by TW Conv) Heart disease Father Heart disease; Heart disease Mother Heart disease; Cancer Other 1 Cancer -unknown ; Heart disease Other 2 Heart disease; Cancer Other 3 Family history of Cancer, unknown; Coronary artery disease Other 4 Fami ly history of Coronary artery disease; Relation Name Status Comments Brother 1 Brother 2 Father Mother Other 1 Other 2 Other 3 Other 4 Social History Tobacco Use Types Packs/Day Years Used Date Smoking Tobacco: Never Passive Smoke Exposure: Never Smokeless Tobacco: Never Tobacco Cessation:Counseling Given: Not Answered Alcohol Use Standard Drinks/Week Comments No 0 (1 standard drink = 0.6 oz pur e alcohol) AUDIT-C Answer Date Recorded Q1: How often do you have a drink containing alc ohol? Monthly or less 04/14/2021 Q2: How many drinks containi ng alcohol do you have on a typical day when you are drinking? 3 or 4 04/14/2021 Q3: How often do you have si x or more drinks on one occasion? Never 04/14/2021 Personal Safety Answer Date Recorded Have you ever been in or are you currently in a harmful physical or emotional relationship or is someone making you feel afraid or unsafe? Denies 12/22/2022 Sex and Gender Information Value Date Recorded Sex Assigned at Not on file Legal Sex Male 2:05 AM [employer]ING HOU[employer] WORK[employer] Gender Identity Not on file Sexual Orientation Not on file Obstetrics History Last Filed Vital Signs Vital Sign Reading Time Taken Comments Blood Pressure 124/89 10/31/2023 10:41 AM CDT Pulse 64 10/31/2023 10:41 AM CDT Temperature 36.8 C (98.2 F) 10/31/2023 10:41 AM CDT Respiratory Rate 16 12/23/2022 7:56 AM CDT Oxygen Saturation 95% 10/31/2023 10:41 AM CDT Inhaled Oxygen Concentration - - Weight 119.7 kg (264 lb) 10/31/2023 10:41 AM CDT Height 177.8 cm (5' 10 ) 10/31/2023 10:41 AM CDT Body Mass Index 37.88 10/31/2023 10:41 AM CDT Plan of Treatment Health Maintenance Due Date Last Done Comments Colon Cancer Screening-Colonoscopy 1960 Depression Screening 1960 Hepatitis C Screening 1960 Prostate Cancer Screening-PSA 1960 Hepatitis B Screening 1978 Regular Well Visit/Exam 18-64 1978 Zoster Vaccine (1 of 2) 2010 Influenza Vaccine (#1) 2023 04/04/2018 DTaP/Tdap/Td Vaccine (2 - Td or Tdap) 07/13/2026 07/13/2016 Pneumococcal vaccine <65 Aged Out No longer eligible based on patient's age to complete this topic Medical Devices Implanted Type Area Cardiac Rehabilitation Program Director Device Identifier Shelf Expiration Date Model / Serial / Lot [employer] [id number] Palacos R+G High Viscosity Cement Bone Gentamicin Arthroplasty - [id number] Implanted:Qty: 1 on 04/03/2018 by Sanchez Urbano MD at [facility] [employer] 09/25/2020 [id number] / / [id number] 1024-52-300 Sigma High Performance Tibial Tray Unicondylar Metal Backed Implanted:Qty: 1 on 04/03/2018 by Sanchez Urbano MD at [facility] Right: Knee [employer] [id number] 04/25/2027 1024-52-300 / / [id number] [employer] [id number] Sigma 8mm Cemented Unicompartmental High Performance Knee - [id number] Implanted:Qty: 1 on 04/03/2018 by Sanchez Urbano MD at [facility] Right: Knee [employer] 01/26/2028 [id number] / / [id number] 1024-54-307 Sigma Hp Tibial Insert Fixed Bearing Unicondylar Implanted:Qty: 1 on 04/03/2018 by Sanchez Urbano MD at [facility] Right: Knee [employer] [id number] 04/25/2021 1024-54-307 / / [id number] [employer] 2169-3 Reconstitute Scaffold Large Mesh Surgical Collagen Sterile Latex - [id number] Implanted:Qty: 1 on 01/08/2019 by Sanchez Urbano MD at [facility] Right: Shoulder [employer] 07/26/2021 2169-3 / / [id number] [employer] 2504-1 Regenerate Tendon [place] Suture - [id number] Implanted:Qty: 1 on 01/08/2019 by Sanchez Urbano MD at [facility] Right: Shoulder [employer] 07/26/2019 2504-1 / / [id number] [employer] 2503-A Arthroscopic Delivery System [place] Suture Sterile Disposable - [id number] Implanted:Qty: 1 on 01/08/2019 by Sanchez Urbano MD at [facility] Right: Shoulder [employer] 03/04/2019 2503-A / / [id number] [employer] [id number] Attune Cruciate Retain Cementless Knee Left 9 Component Femoral - [id number] Implanted:Qty: 1 on 04/14/2021 by Sanchez Urbano MD at [facility] Left: Knee [employer] 08/25/2028 [id number] / / [id number] [employer] [id number] Attune 5mm Cruciate Retaining Rotate Platform Knee 9 Insert - [id number] Implanted:Qty: 1 on 04/14/2021 by Sanchez Urbano MD at [facility] Left: Knee [employer] [id number] / / [id number] [employer] [id number] Attune Cementless Rotate Platform Knee 9 Baseplate Tibial - [id number] Implanted:Qty: 1 on 04/14/2021 by Sanchez Urbano MD at [facility] Left: Knee [employer] 12/26/2030 [id number] / / [id number] Insurance [facility] H[facility]/PPO Address: [facility] [id number] [place] [id number] [facility] [place] [address] [facility] Advance Directives For more information, please contact: [phone] * Full Code (Latest Code Status on File) Date Activated Date Inactivated Comments 12/22/2022 1:38 PM 12/23/2022 4:22 PM * Full Code Date Activated Date Inactivated Comments 12/22/2022 7:49 AM 12/22/2022 10:20 AM * Full Code Date Activated Date Inactivated Comments 04/03/2018 1:17 PM 04/04/2018 7:15 PM Care Teams Entry Level Programmer Relationship Specialty Start Date End Date Howard Gonzalez PA [address] [place] [address] PCP - General 01/12/11 Kain Ferrera PA [address] [place] [address] Physician Lockstitch Lining Maker Orthopedic Surgery 04/14/21 Gael Jiménez MD [address] [place] [address] Anesthesiologist Pain Management 01/12/22
--- OUTSIDE RECORDS SUMMARY | 2024-04-20 13:48 | XMS_ITS | Data Portability ---
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 Plan of Treatment Reminders Order Date Submit Date Provider Last Modified By Organization Details Last Modified Time Details Appointments None recorded. Lab rsv (respirato ry syncytial virus), rapid, nasopharyn geal 2023 024 GARDINER In-Office Order, Internal Use Only DO Not Attach Compendium DO Not Attach Compendium, Do Not Delete/merge, [id number] 15:47:39 influenza virus A + B + SARS-CoV-2 (COVID19) Ag panel, rapid IA, upper respirator y specimen 2023 024 georgi In-Office Order, Internal Use Only DO Not Attach Compendium DO Not Attach Compendium, Do Not Delete/merge, [id number] 15:56:12 PSA, serum or plasma 2022 023 GARDINER [facility], [address] [place] [address], [address], 3 17:12:01 Referral physical therapist referral 2024 025 [facility], [address] [facility], [place], [address], 5 12:08:20 gastroente rologist referral 2022 023 SOFI Fajardo MD, [facility], [place], [address], 3 00:32:49 dermatolog ist [facility] 2022 [email or web address] , [address] [facility] , [facility], [place], [address], 3 10:00:38 Procedures None recorded. Surgeries None recorded. Imaging XR, thumb 2022 023 [email or web address] [facility], [address] [facility] [place], [address], 3 11:39:17 US, thigh - pain/swell ing seems to originate in distal medial thigh/quad ricep 2022 023 [facility][1], [address] [facility] [place], [address], 3 14:51:41 Medication Orders naproxen 500 mg tablet 2024 025 [facility]armacy #[id number], [address] [place], [address], 5 15:12:43 azithromyc in 500 mg tablet 2023 024 [facility]/Pharmacy #[id number], [address] [place], [address], 5 14:49:07 Medrol (Oniel) 4 mg tablets in a dose pack 2023 024 [facility]/Pharmacy #[id number], [address] [place], [address], 5 14:49:15 Patient TargetsNo targets recorded. Patient Instructions Encounter Date Encounter Id Patient Instructions Last Modified By Organization Details Last Modified Time 06/13/2022 [id number] A healthy lifestyle: care instructions georgi Not available 06/13/2022 18:23:39 leg and ankle edema: care instructions jnanney Not available 06/13/2022 18:23:04 03/05/2023 [id number] cough: care instructions [email or web address] Not available 03/05/2023 15:28:08 Reason for Referral Rn Intake Referral for M elanocytic nevus of skin Referring Physician: Gabrielle Gonzalez [facility], Encounter Date: 12/05/2022 Php Magento Developer Referral for Esophageal dysphagia food hanging up and esphageal cancer hx... Referring Physician: Gabrielle Gonzalez [facility], Encounter Date: 01/09/2023 Physical Therapist Referral for Pain of right shoulder joint [facility] Date: 03/21/2024 Results Created Date Observation Date Name Description Value Unit Range Abnormal Flag Note LastModifiedBy Organization Detail LastModifiedTime 12/06/1912/07/2022 PSA (SERI AL MONIT OR) prostate specific Ag 1.0 NG/mL 0.0-4. 0 Anjali ECLIA metho dolog y. Accor ding to the Ameri can [employer]o g[employer] iatio n, Serum PSA shoul d decre ase and remai n at undet ectab le level s after radic al prost atect ronni. The AUA defin es bioch emica l recur rence as an initi al PSA value 0.2 ng/mL or great er follo wed by a subse quent confi rmato ry PSA value 0.2 ng/mL or great er. Value s obtai david with diffe rent assay metho ds or kits canno t be used inter [facility] e[facility]osesy . Resul ts canno t be inter prete d as absol walter evide nce of the prese nce or absen ce of selin holly se. Not Available [facility] ([facility]) [address] [facility], [place], [address], 12/07/2022 17:12:01 12/06/1912/07/2022 PSA (SERI AL MONIT OR) pdf . Not Available [facility] ([facility]) [address] [facility], [place], [address], 12/07/2022 17:12:01 03/05/19 24 03/05/2023 rsv (resp irato ry syncy tial virus ), rapid , nasop haryn geal RSV negati ve Not Available In-Office Order Internal Use Only DO Not Attach Compendium DO Not Attach Compendium, Do Not Delete/merge, [id number] 03/05/2023 15:27:40 03/05/19 24 03/05/2023 influ ayden virus A + B + SARS- CoV-2 (COVI D19) Ag panel , rapid IA, upper respi rator y speci men Flu A negati ve Not Available In-Office Order Internal Use Only DO Not Attach Compendium DO Not Attach Compendium, Do Not Delete/merge, [id number] 03/05/2023 15:27:32 03/05/19 24 03/05/2023 influ ayden virus A + B + SARS- CoV-2 (COVI D19) Ag panel , rapid IA, upper respi rator y speci men Flu B negati ve Not Available In-Office Order Internal Use Only DO Not Attach Compendium DO Not Attach Compendium, Do Not Delete/merge, [id number] 03/05/2023 15:27:32 03/05/19 24 03/05/2023 influ ayden virus A + B + SARS- CoV-2 (COVI D19) Ag panel , rapid IA, upper respi rator y speci men Rapid SARS CoV 2 Ag, QL IA, respiratory specimen negati ve Not Available In-Office Order Internal Use Only DO Not Attach Compendium DO Not Attach Compendium, Do Not Delete/merge, [id number] 03/05/2023 15:27:32 05/30/19 23 05/29/2022 MRI, knee, w/o contr ast No observ ation record ed. dtjose manuel [facility] [address] [facility], [place], [address], 05/30/2022 10:36:12 07/20/19 23 07/19/2022 US, knee No observ ation record ed. dtjose manuel [facility] [address] [facility] [address], [place], [address], 07/20/2022 11:40:30 Result Notes None recorded. 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 Not Available [facility] 1 09:35:26 Folliculitis 30673855 Active Not Available [facility] 09:35:26 Backache 933209942 Active Not Available [facility] 09:35:26 Diarrhea 78296186 Active Not Available [facility] 09:35:26 Middle insomnia 40035889 Active Not Available [employer] 09:35:27 Essential hypertension 45313879 Active 2015 Not Available [facility] 1 09:35:26 Angina pectoris 673329550 Active Not Available [facility] 09:35:26 Congestive heart failure 55823619 Active Not Available [facility] 09:35:26 Disorder of vision 47467869 Active Not Available [facility] 09:35:26 Malignant tumor of tonsil 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 Procedures Surgical History Date Name Laterality Status Provider Name and Address Organization Details Recorded Time Back Surgery completed Alondra Yepez MA [facility] 03/12/2014 17:16:07 Hernia Repair completed Alondra Yepez MA [facility] 03/12/2014 17:16:07 Cholecystectomy completed Alondra Yepez MA [facility] 03/12/2014 17:16:07 Other completed Alondra Yepez MA [facility] 03/12/2014 17:16:07 Arthroscopic Surgery completed Alondra Yepez MA [facility] 03/12/2014 17:16:07 Imaging Results Imaging Date Name Status LastModified by Organiz ation Details LastModified Time 05/29/2022 [facility] [address] [place], [address], 05/30/2022 10:36:12 07/19/2022 US, knee completed [facility] [address] [place] [address], [address], 07/20/2022 11:40:30 Procedure Notes None recorded. Medical Equipment None Reported. Allergies Allergen ID Allergen Name Allergen Category Reaction Reaction Severity Criticality Documentation Date Start Date Code Code System Note Provider Name and Address Organization Details Recorded Time 443656 Product containin g penicilli n (product) medicatio n Not available Not available Not available 08/01/2017 49424 8001 SNOMED Not Available Not Available Not Available 888389 iodine medicatio n Not available Not available Not available 08/01/2017 5933 RxNorm Not Available Not Available Not Available 635379 iodine medicatio n hives moderate Not available 02/03/20202016 5933 RxNorm Not Available Not Available Not Available 507648 amlodipin e medicatio n swelling Not available Not available 08/01/2021 38934 RxNorm Not Available Not Available Not Available Medications Name Sig Start Date Stop Date Status Note LastModified by Organization Details LastModified Time blood pressu solution kit 01/09 completed Not Available Not Available Not Available celecoxib 200 mg capsule 08/01 completed Not Available Not Available Not Available cyclobenzap rine 10 mg tablet TAKE 1 TABLET BY MOUTH THREE TIMES A DAY NEEDED FOR 30 DAYS 08/31 completed Not Available Not Available Not Available labetalol 200 mg tablet 04/25 completed Not Available Not Available Not Available clindamycin HCl 300 mg capsule 05/15 completed Not Available Not Available Not Available diphenhydra mine 50 mg capsule TAKE 1 CAPSULE BY MOUTH [address] SCAN 01/09 completed Not Available Not Available Not Available atenolol 100 mg tablet Take 1 tablet every day by oral route for 90 days. active Not Available Not Available No t Available hydrocodone 5 mg-acetamin ophen 325 mg tablet 08/01 completed Not Available Not Available Not Available meloxicam 15 mg tablet 15 mg by oral route. 06/09 completed Not Available Not Available Not Available lisinopril 20 mg tablet TAKE 1 TABLET BY MOUTH EVERY DAY 08/31 completed Not Available Not Available Not Available ondansetron HCl 4 mg tablet 08/01 completed Not Available Not Available Not Available prednisone 20 mg tablet 05/15 completed Not Available Not Available Not Available valsartan 80 mg tablet TAKE 1 TABLET BY MOUTH DAILY active Not Available Not Available No t Available topiramate 25 mg tablet 05/15 completed Not Available Not Available Not Available hydralazine 25 mg tablet TAKE 1 TABLET BY MOUTH THREE TIMES A DAY 02/02 completed Not Available Not Available Not Available acetaminoph en 300 mg-codeine 30 mg tablet TAKE 1 TABLET BY MOUTH EVERY 6 (SIX) HOURS NEEDED FOR SEVERE PAIN FOR UP TO 20 DOSES .ACUTE PAIN. 08/01 completed Not Available Not Available Not Available amlodipine 5 mg tablet TAKE 1 TABLET (5 MG TOTAL) BY MOUTH DAILY. 2024 active Not Available Not Available Not Avai lable ciprofloxac in 500 mg tablet Take 1 tablet every 12 hours by oral route for 10 days. 06/30 completed Not Available Not Available Not Available sulfamethox azole 800 mg-trimetho prim 160 mg tablet Take 1 tablet every 12 hours by oral route for 10 days. 04/25 completed Not Available Not Available Not Available tramadol 50 mg tablet TAKE 1 TABLET BY MOUTH EVERY 6 HOURS 08/31 completed Not Available Not Available Not Available pentoxifyll ine ER 400 mg tablet,exte nded release 04/25 completed Not Available Not Available Not Available Depo-Medrol 80 mg/mL suspension for injection Take 1 mL by injection route. 07/28 completed Not Available Not Available Not Available oxycodone-a cetaminophe n 5 mg-325 mg tablet 06/30 completed Not Available Not Available Not Available alprazolam 0.5 mg tablet 05/15 completed Not Available Not Available Not Available famotidine 20 mg tablet TAKE 1 TABLET THE NIGHT BEFORE AND 1 TABLET THE MORNING OF CARDIAC CATH 01/09 completed Not Available Not Available Not Available temazepam 15 mg capsule Take 1 capsule every day by oral route at bedtime for 30 days. active Not Available Not Available No t Available meclizine 25 mg tablet TAKE 1 TABLET BY MOUTH THREE TIMES A DAY 08/01 completed Not Available Not Available Not Available amlodipine 10 mg tablet TAKE 1 TABLET BY MOUTH EVERY DAY 03/21 completed Not Available Not Available Not Available simvastatin 20 mg tablet TAKE 1 TABLET BY MOUTH EVERY DAY active Not Available Not Available No t Available lisinopril 10 mg tablet TAKE 1 TABLET BY MOUTH EVERY DAY 02/15 completed Not Available Not Available Not Available prednisone 50 mg tablet 1 TABLET BY MOUTH 19 HOURS PRIOR TO TEST, 13 HOURS PRIOR, 7 HOURS PRIOR AND [address] SCAN 01/09 completed Not Available Not Available Not Available orphenadrin e citrate ER 100 mg tablet,exte nded release 04/25 completed Not Available Not Available Not Available hydrochloro thiazide 12.5 mg capsule TAKE 1 CAPSULE BY MOUTH EVERY DAY IN THE MORNING 03/21 completed Not Available Not Available Not Available triamterene 37.5 mg-hydrochl orothiazide 25 mg tablet 08/31 completed Not Available Not Available Not Available omeprazole 20 mg capsule,del ayed release TAKE 1 CAPSULE BY MOUTH EVERY DAY 03/21 completed Not Available Not Available Not Available aspirin 81 mg chewable tablet Chew 1 tablet every day by oral route. active Not Available Not Available No t Available codeine 10 mg-guaifene sin 100 mg/5 mL oral liquid Take 10 mL every 4 hours by oral route as needed for 10 days. 06/30 completed Not Available Not Available Not Available acetaminoph en 300 mg-codeine 60 mg tablet take 1 tablet every 6 hours by mouth as needed 04/25 completed Not Available Not Available Not Available hydrochloro thiazide 25 mg tablet TAKE 1 TABLET BY MOUTH EVERY DAY 04/25 completed Not Available Not Available Not Available furosemide 20 mg tablet TAKE 1 TABLET BY MOUTH EVERY DAY 03/21 completed Not Available Not Available Not Available metoprolol succinate ER 25 mg tablet,exte nded release 24 hr TAKE 1 TABLET (25 MG TOTAL) BY MOUTH DAILY. active Not Available Not Available No t Available ergocalcife rol (vitamin D2) 1,250 mcg (50,000 unit) capsule TAKE 1 CAPSULE BY MOUTH ONE TIME PER WEEK 06/30 completed Not Available Not Available Not Available methylpredn isolone 4 mg tablets in a dose pack TAKE 6 TABLETS ON DAY 1 DIRECTED ON PACKAGE AND DECREASE BY 1 TAB EACH DAY FOR A TOTAL OF 6 DAYS 03/21 completed Not Available Not Available Not Available labetalol 100 mg tablet 04/25 completed Not Available Not Available Not Available lisinopril 40 mg tablet TAKE 1 TABLET BY MOUTH EVERY DAY AT NIGHT active Not Available Not Available No t Available atenolol 50 mg tablet Take 1 tablet every day by oral route for 30 days. active Not Available Not Available No t Available naproxen 500 mg tablet TAKE 1 TABLET BY MOUTH TWICE A DAY FOR 90 DAYS NEEDED 2024 active Not Available Not Available Not Avai lable valsartan 160 mg tablet Take 1 tablet twice a day by oral route for 90 days. 05/15 completed Not Available Not Available Not Available Allergy (diphenhydr amine) 25 mg capsule TAKE 2 CAPSULES THE NIGHT BEFORE AND 2 CAPSULES THE MORNING OF CARDIAC CATH active Not Available Not Available No t Available azithromyci n 500 mg tablet TAKE 1 TABLET BY MOUTH EVERY DAY FOR 3 DAYS 03/21 completed Not Available Not Available Not Available valsartan 40 mg tablet Take 1 tablet every day by oral route for 90 days. 05/15 completed Not Available Not Available Not Available eszopiclone 2 mg tablet 08/01 completed Not Available Not Available Not Available chlorhexidi ne gluconate 0.12 % mouthwash 04/25 completed Not Available Not Available Not Available hydrochloro thiazide 12.5 mg tablet 04/25 completed Not Available Not Available Not Available Butalbital Compound with Codeine 30 mg-50 mg-325 mg-40 mg capsule Take 1 capsule every 4 hours by oral route as needed for 30 days. 08/01 completed Not Available Not Available Not Available diclofenac 1 % topical gel 02/02 completed Not Available Not Available Not Available Fioricet 50 mg-300 mg-40 mg capsule Take 1 capsule every 4 hours by oral route as needed for 30 days. 08/01 completed Not Available Not Available Not Available ID NOW COVID-19 Test Kit TEST DIRECTED TODAY 01/09 completed Not Available Not Available Not Available Paxlovid 300 mg (150 mg x 2)-100 mg tablets in a dose pack TAKE 1 DOSE PACK BY MOUTH DIRECTED 03/05 completed Not Available Not Available Not Available Vitals Date Recorded Body height Body temperature Oxygen saturation Oxygen saturation in Arterial blood by Pulse oximetry Heart rate Respiratory rate Body mass index (BMI) Body weight Systolic blood pressure Diastolic blood pressure Provider Name and Address Organization Details Last Updated DateTime 3 179.07 cm 97.9 [degF] 98 % 98 % 64 /min 16 /min 37.1 kg/m2 561394. 6 g 134 mm[Hg] 93 mm[Hg] Gabrielle Gonzalez PA-C Attn: Robby g,[address] [place], [address], [place] - [facility] 3 17:42:14 Date Recorded Body height Body mass index (BMI) Body weight Respiratory rate Heart rate Oxygen saturation Oxygen saturation in Arterial blood by Pulse oximetry Systolic blood pressure Diastolic blood pressure Provider Name and Address Organization Details Last Updated DateTime 3 179.07 cm 37.4 kg/m2 525541. 44 g 16 /min 60 /min 96 % 96 % 104 mm[Hg] 76 mm[Hg] Mary Kathleen MA [facility] 3 17:27:25 Date Recorded Body height Body mass index (BMI) Body weight Oxygen saturation Oxygen saturation in Arterial blood by Pulse oximetry Heart rate Systolic blood pressure Diastolic blood pressure Provider Name and Address Organization Details Last Updated DateTime 3 179.07 cm 37.2 kg/m2 492535. 79 g 94 % 94 % 71 /min 89 mm[Hg] 57 mm[Hg] Zuleyka Canela MA [facility] 3 18:06:40 Date Recorded Body height Body mass index (BMI) Body weight Oxygen saturation Oxygen saturation in Arterial blood by Pulse oximetry Heart rate Provider Name and Address Organization Details Last Updated DateTime 4 179.07 cm 36.8 kg/m2 010371. 02 g 96 % 96 % 87 /min Mary Kathleen MA [facility] 4 15:26:59 Date Recorded Body weight Body mass index (BMI) Body height Oxygen saturation Oxygen saturation in Arterial blood by Pulse oximetry Heart rate Systolic blood pressure Diastolic blood pressure Provider Name and Address Organization Details Last Updated DateTime 5 667864. 02 g 37.3 kg/m2 177.8 cm 97 % 97 % 68 /min 116 mm[Hg] 82 mm[Hg] Zuleyka Canela MA [facility] 5 14:56:16 Social History Question Answer Notes LastModified by Organizat ion Details LastModified Time Tobacco Smoking Status Never Smoker Alondra Yepez MA [facility], [facility] 03/12/2014 17:16:07 Do You Have An Advance Directive? No [email or web address] Information not available 06/13/2022 What Is Your Level Of Alcohol Consumption? Occasional Information not available 04/25/2018 Are You Blind Or Do You Have Difficulty Seeing? No Information not available 02/15/2021 What Is Your Level Of Caffeine Consumption? Moderate Information not available 04/25/2018 In The 14 Days Before Symptom Onset, Have You Had Close Contact With A Laboratory-confir med COVID-19 While That Case Was Ill? No Information not available 08/31/2020 In The 14 Days Before Symptom Onset, Have You Had Close Contact With A Person Who Is Under Investigation For COVID-19 While That Person Was Ill? No Information not available 08/31/2020 Have You Been To An Area Known To Be High Risk For COVID-19? No Information not available 08/31/2020 Are You Currently Employed? Yes Information not available 10/01/2018 Are You Deaf Or Do You Have Serious Difficulty Hearing? No Information not available 02/15/2021 What Type Of Diet Are You Following? REGULAR Information not available 02/03/2020 Which Illicit Or Recreational Drugs Have You Used? None Information not available 02/03/2020 Do You Or Have You Ever Used E-cigarettes Or Vape? Never Used Electronic Cigarettes Information not available 07/29/2019 What Is Your Occupation? [employer] Information not available 02/03/2020 Hard Of Hearing Or Deaf In One Or Both Ears? No Information not available 10/01/2018 Legally Blind In One Or Both Eyes? No Information no t available 10/01/2018 Live Alone Or With Others? With Others Information not available 10/01/2018 What Was The Date Of Your Most Recent Tobacco Screening? 03/21/2024 Information not available 03/21/2024 What Is Your Relationship Status? Information not available 08/31/2020 Are You Sexually Active? Yes Information not available 10/01/2018 Smoke Alarm In Home Yes Information not available 10/01/2018 Do You Have Smoke And Carbon Monoxide Detectors In Your Home? Yes Information not available 08/31/2020 Are You Passively Exposed To Smoke? No Information no t available 08/31/2020 Do You Or Have You Ever Used Smokeless Tobacco? Never Used Smokeless Tobacco Information not available 07/29/2019 General Stress Level Medium Information not available 02/03/2020 Do You Feel Stressed (tense, Restless, Nervous, Or Anxious, Or Unable To Sleep At Night)? [id number] Information not available 08/01/2021 Do You Use Any Illicit Or Recreational Drugs? No Information not available 08/31/2020 Has Tobacco Cessation Counseling Been Provided? No Information not available 10/01/2018 On What Date Was Tobacco Cessation Counseling Provided? 03/21/2024 Information not available 03/21/2024 Do You Or Have You Ever Used Any Other Forms Of Tobacco Or Nicotine? No Information not available 08/31/2020 Sex: Male Functional Status Question Answer Note LastModified by Organization D etails LastModified Time Are you able to care for yourself? Yes Information n ot available 10/01/2018 What is your exercise level? None [email or web address] Information not available 09/14/2021 Mental Status None recorded. Family History Relationship Description Onset Age of this Age Resolved Age Notes LastModified by Organization Details LastModified Time Father Diffuse disease of coronary artery Not available 07/28 15:29:02 Father Hyperlipidem ia Not available 07/28 15:29:02 Mother Heart disease Not available 07/28 15:29:02 Sister Heart disease Not available 07/28 15:29:02 Brother Heart disease Not available 07/28 15:29:02 Medical History Condition Response Coronary Artery Disease N Other N High Blood Pressure Y Atrial Fibrillation N Kidney or Bladder Problems Y Thyroid Problems N GI Problems N Depression N COPD N Blood Clots N Skin Problems N Eating Disorder N Anemia N Heart Attack (ID) N Anxiety Disorder N Diabetes N Muscle, Joint, or Bone Problems Y Seizures/Epilepsy N Acid Reflux (GERD) N Cancer Y Stroke N Asthma N Allergies N ADHD N Substance Abuse N High Cholesterol N Hepatitis N Liver Disease N Schizophrenia N Headaches N Osteoporosis N Heart Failure N Immunizations Vaccine Type Date Status Note Provider Nam e and Address Organization Details Recorded Time influenza, unspecified formulation 9 completed MARQUITA Petit [place] - [facility] 12/05/2022 09:41:42 COVID-19, mRNA, LNP-S, PF, 100 mcg/0.5mL dose or 50 mcg/0.25mL dose 1 completed MARQUITA Petit [place] - [facility] 12/05/2022 09:41:42 Influenza, split virus, quadrivalent, PF 9 completed Zuleyka Canela MA [place], [place] - [facility] 12/05/2022 09:41:42 Tdap 7 completed Not Available [facility] 03/15/2019 02:33:31 Past Encounters Encounter ID Performer Location Encounter Start Date Encounter Closed Date Diagnosis/Indication Diagnosis SNOMED-CT Code Diagnosis ICD10 Code Diagnosis Note [id number] [facility] [address] [place] [address] 8 03/12/2014 17:06:02 03/18/2014 10:57:13 Upper respiratory infection [id number] Anat Martini MA [facility] [address] [place] [address] 04/22/2014 16:56:14 04/22/2014 17:17:17 Folliculitis [id number] [facility] [address] [place] [address] 05/12/2014 17:08:42 05/13/2014 09:10:37 Backache [id number] [facility] [address] [place] [address] 05/21/2014 18:22:52 05/21/2014 19:45:37 Backache [id number] [facility] [address] [place] [address] 06/02/2014 15:12:56 06/02/2014 16:01:09 Diarrhea 98687424 [id number] [facility] [address] [place] [address] 12/01/2014 17:00:02 12/01/2014 17:26:52 Middle insomnia 87296030 G47.00 Essential hypertension 58732165 I10 [id number] [facility] [address] [place] [address] 12/08/2014 19:12:13 12/09/2014 10:47:50 Essential hypertension 96719575 I10 Backache 396908603 M54.9 Middle insomnia 37015649 G47.00 Upper resp iratory infection 40534571 J06.9 [id number] LLUVIA Saleem [facility] [address] [place] [address] 01/29/2015 10:39:38 01/29/2015 11:34:52 Essential hypertension 58795583 I10 [id number] Gabrielle Gonzalez PA-C [facility] [address] [place] [address] 02/16/2015 17:42:38 02/17/2015 09:17:00 Folliculitis 13455714 L73.9 Essential hypertension 07129864 I10 Middle insomnia 05962545 G47.00 Upper resp iratory infection 61761638 J06.9 [id number] Gabrielle Gonzalez PA-C [facility] [address] [place] [address] 02/23/2015 18:19:59 02/24/2015 13:15:07 Folliculitis 46208091 L73.9 Essential hypertension 81813057 I10 Backache 663901985 M54.9 Middle insomnia 57072750 G47.00 Upper resp iratory infection 89260748 J06.9 [id number] Gabrielle Gonzalez PA-C [facility] [address] [place] [address] 03/02/2015 11:36:35 03/02/2015 12:09:28 Angina pectoris 536440857 I20.9 Congestive heart failure 52509633 I50.9 [id number] Gabrielle Gonzalez PA-C [facility] [address] [place] [address] 06/29/2015 18:01:25 06/29/2015 18:57:31 Essential hypertension 54076288 I10 Congestive heart failure 64494175 I50.9 [id number] Gabrielle Gonzalez PA-C [facility] [address] [place] [address] 08/03/2015 17:49:37 08/03/2015 19:12:54 Disorder of vision 52386748 H53.9 Malignant tumor of tonsil 637427395 C09.9 [id number] Gabrielle Gonzalez PA-C [facility] [address] [place] [address] 08/10/2015 10:08:37 08/10/2015 11:57:07 Chronic headache disorder 939923259 G43.719 Essential hypertension 10037755 I10 [id number] Gabrielle Gonzalez PA-C [facility] [address] [place] [address] 08/19/2015 15:01:18 08/19/2015 15:28:41 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 [id number] Gabrielle Gonzalez PA-C [facility] [address] [place] [address] 09/03/2015 16:35:59 09/03/2015 17:21:55 Migraine 88746878 G43.909 Essential hypertension 49947762 I10 [id number] Gabrielle Gonzalez PA-C [facility] [address] [place] [address] 03/23/2016 17:16:12 03/23/2016 19:14:31 Paroxysmal atrial fibrillation 297764540 I48.0 Essential hypertension 07866234 I10 [id number] Gabrielle Gonzalez PA-C [facility] [address] [place] [address] 04/26/2016 16:49:51 04/26/2016 18:07:08 Vertebrobasilar artery syndrome 989134905 G45.0 Chronic he adache disorder 295059125 G43.719 Essential hypertension 68308605 I10 Orthostati c hypotension 85844646 I95.1 [id number] Gabrielle Gonzalez PA-C [facility] [address] [place] [address] 07/13/2016 15:57:25 07/13/2016 17:23:24 Laceration of hand 063260942 S61.411A [id number] Gabrielle Gonzalez PA-C [facility] [address] [place] [address] 07/21/2016 10:47:45 07/21/2016 13:01:10 Laceration of hand 593446844 S61.411A [id number] Gabrielle Gonzalez PA-C [facility] [address] [place] [address] 07/25/2016 17:12:43 07/25/2016 18:23:55 Laceration of hand 220877904 S61.411A [id number] LLUVIA Saleem [facility] [address] [place] [address] 09/25/2016 17:08:07 09/25/2016 19:02:17 Atypical angina 838060153 I20.8 Coronary arteriosclerosis 52020575 I25.10 Essential hypertension 24744684 I10 [id number] Gabrielle Gonzalez PA-C [facility] [address] [place] [address] 05/15/2017 16:53:24 05/15/2017 18:00:13 Tear of medial meniscus of knee 503836571 S83.222A Obstructiv e sleep apnea syndrome 12754425 G47.33 [id number] Gabrielle Gonzalez PA-C [facility] [address] [place] [address] 07/10/2017 17:42:55 07/10/2017 18:36:42 Chondromalacia of patella 38091658 M22.42 [id number] Gabrielle Gonzalez PA-C [facility] [address] [place] [address] 08/01/2017 16:50:23 08/06/2017 15:56:56 Lumbar radiculopathy 409892865 M54.16 [id number] Gabrielle Gonzalez PA-C [facility] [address] [place] [address] 10/15/2017 17:09:23 10/15/2017 17:42:08 Pain in right knee 5345574964 23628 M25.589 [id number] Gabrielle Gonzalez PA-C [facility] [address] [place] [address] 10/22/2017 10:00:38 10/22/2017 10:52:00 Pain in right knee 6956201371 34241 M25.957 [id number] Aria Cerna MA [facility] [address] [place] [address] 03/22/2018 11:32:55 03/22/2018 12:58:21 Essential hypertension 96835974 I10 [id number] Gabrielle Gonzalez PA-C [facility] [address] [place] [address] 04/25/2018 09:45:36 04/25/2018 10:15:29 Pain in right knee 6032704624 96762 M25.561 Essential hypertension 51479150 I10 [id number] LLUVIA Saleem [facility] [address] [place] [address] 06/11/2018 16:55:54 06/12/2018 12:38:24 Acute bronchitis 96930820 J20.8 [id number] Gabrielle Gonzalez PA-C [facility] [address] [place] [address] 10/01/2018 09:59:28 2018 15:07:35 Screening for malignant neoplasm of colon 739157328 Z12.11 Essential hypertension 91543016 I10 Pain of ri ght shoulder joint 1409898341 7411713 M25.328 [id number] LLUVIA Saleem [address] [place] [address] 12/19/2018 16:36:37 12/19/2018 17:28:49 Essential hypertension 28093239 I10 Bone spur of right shoulder 5338328545 43273 M25.711 Screening for malignant neoplasm of prostate 018717958 Z12.5 [id number] LLUVIA Saleem [facility] [address] [place] [address] 07/01/2019 18:30:03 07/02/2019 12:51:37 Pain in left foot 1381272484 03154 M79.659 [id number] Gabrielle Gonzalez PA-C [facility] [address] [place] [address] 07/29/2019 13:19:12 07/30/2019 11:05:03 Pain in left foot 7968449606 94761 M79.337 [id number] LLUVIA Saleem [facility] [address] [place] [address] 02/03/2020 09:36:41 02/03/2020 17:35:10 Essential hypertension 13661343 I10 Osteoarthritis 525174359 M15.0 [id number] LLUVIA Saleem [facility] [address] [place] [address] 02/26/2020 09:36:22 02/26/2020 18:59:16 Low back pain 947249693 M54.5 [id number] Gabrielle Gonzalez PA-C [facility] [address] [place] [address] 08/31/2020 10:02:00 08/31/2020 13:55:53 Acute bronchitis with bronchospasm 77084241 J20.8 Excessive sweating 17782 005 R61 Postural dizziness 94491 7008 R42 [id number] Gabirelle Gonzalez PA-C [facility] [address] [place] [address] 02/15/2021 16:38:29 02/15/2021 17:34:34 Essential hypertension 00235397 I10 Knee joint painful on movement 791344719 M25.418 [id number] Gabrielle Gonzalez PA-C [facility] [address] [place] [address] 06/14/2021 14:13:46 06/14/2021 15:12:04 Suspected COVID-19 797606558 Z20.167 [id number] Gabrielle Gonzalez PA-C [facility] [address] [place] [address] 08/01/2021 14:35:12 08/01/2021 15:33:41 Edema of lower extremity 653633371 R60.0 Body mass index 30+ - obesity 725908955 Z68.37 Screening for malignant neoplasm of colon 620585759 Z12.11 Screening for malignant neoplasm of prostate 988073646 Z12.5 Essential hypertension 59005518 I10 Adult [facility] th examination 472471231 Z00.00 [id number] LLUVIA Saleem [facility] [address] [place] [address] 08/11/2021 11:35:35 08/11/2021 12:40:11 Thrombophlebitis of the common iliac vein 489551141 I80.592 [id number] LLUVIA Saleem [address] [place] [address] 09/14/2021 16:40:45 09/14/2021 17:15:59 Acetabular labrum tear 564664623 M24.426 [id number] Gabrielle Gonzalez PA-C [facility] [address] [place] [address] 05/01/2022 17:02:07 05/09/2022 09:04:25 Tension-type headache 686292455 G44.219 Effusion o f joint of left knee 0739800133 84721 M25.465 [id number] Gabrielle Gonzalez PA-C [facility] [address] [place] [address] 06/13/2022 17:26:10 06/15/2022 11:34:36 Edema of lower extremity 704876186 R60.0 Overweight 050204229 E66 .3 [id number] Zuleyka Canela MA [facility] [address] [place] [address] 12/05/2022 17:14:49 12/06/2022 16:17:48 Melanocytic nevus of skin 847217468 D22.39 Screening for malignant neoplasm of prostate 896666740 Z12.5 [id number] Gabrielle Gonzalez PA-C [facility] [address] [place] [address] 01/09/2023 17:55:57 01/10/2023 11:39:17 Pain in left thumb 4126493927 554522 M79.645 Esophageal dysphagia 408 55051 R13.19 [id number] Gabrielle Gonzalez PA-C [facility] [address] [place] [address] 03/05/2023 15:22:50 03/06/2023 11:40:33 Viral syndrome 719999469 B34.9 Cough 88561145 R05.9 Acute bron chitis with bronchospasm 78998091 J20.8 [id number] Gabrielle Gonzalez PA-C [facility] [address] [place] [address] 03/21/2024 14:36:19 03/24/2024 15:17:32 Pain of right shoulder joint 7401473088 9760846 M25.511 Health Concerns Section Related Observation LastModified by Organization Detai ls LastModified Time None Recorded Concern Status LastModified by Organization Details LastModified Time None Recorded Advance Directives Directive N: Payers Encounter Date Sequence Insurance Name Policy Number Policy Claire Covered Member ID Claire Member ID Guarantor Name 06/13/2022 1 [employer] - CHOICE (POS II) [id number] Reginaldo E Hokenson [id number] Reginaldo E Hokenson 12/05/2022 1 [employer] - CHOICE (POS II) [id number] Reginaldo E Hokenson [id number] Reginaldo E Hokenson 01/09/2023 1 [employer] - CHOICE (POS II) [id number] Reginaldo E Hokenson [id number] Reginaldo E Hokenson 03/05/2023 1 [employer] - CHOICE (POS II) [id number] Reginaldo E Hokenson [id number] Reginaldo E Hokenson 03/21/2024 1 [employer] - CHOICE (POS II) [id number] Reginaldo E Hokenson [id number] Reginaldo E Hokenson Notes Date Note Type Note Provider Name and Address Organization Details Recorded Time 06/13/2022 text/html TKA with synovitis...mri shows hardware is in place but still has pain...multiple scans reproduce the accumulation of effusion Gabrielle Gonzalez PA-C Attn: [address] [place], [address], [facility] 06/13/2022 18:26:12 12/05/2022 text/html new spots on face.. dont like them...wants a derm...has a heart cath upcoming...Claudette kovacs was walking at work and something pinched in left knee and he almost went down...no one seems concerned...also nay Canela MA null, [facility] 12/05/2022 17:56:55 01/09/2023 text/html had new experience during cath...but hes much better now...wants an ENT to examine for his dysphagia and has hx of esoph cancer....left thumb getting very painful with movement Gabrielle Gonzalez PA-C Attn: [address] [place], [address], [place] 01/09/2023 18:33:17 03/05/2023 text/html was given paxlov id as a empiric for URI ( positive for covid) but it messed with his blood pressure Gabrielle Gonzalez PA-C Attn: [address] [facility], [place], [address], [facility] 03/05/2023 15:59:26 03/21/2024 text/html rt shoulder pain...hx of 2 previous surgeries...it popped the other day...now is very painful... Gabrielle Gonzalez PA-C Attn: [address] [facility], [place], [address], [facility] 03/21/2024 15:13:15
--- OUTSIDE RECORDS SUMMARY | 2024-04-20 13:48 | XMS_ITS | Encounter Summary ---
Author Organization [facility] Address [address] [place] [address] Phone Care Team Providers Care Financial Recruiter Name Role Phone Howard Gonzalez Primary Care Provider [phone] Kain Ferrera Unavailable [phone] Gael Jiménez MD Unavailable [phone] Encounter Details Date Type Department Care Team (Late st Contact Info) Description 09/26/2019 Telephone [facility] Cardiology [address] [facility] 8th [place] [address] [place] [address] Petey Simental MD [address] [facility] [address] [place] [address] Social History Tobacco Use Types Packs/Day Years Used Date Smoking Tobacco: Never Smokeless Tobacco: Never Alcohol Use Standard Drinks/Week Comments No 0 (1 standard drink = 0.6 oz pur e alcohol) Sex and Gender Information Value Date Recorded Sex Assigned at Not on file Legal Sex Male 2:05 AM [employer] Gender Identity Not on file Sexual Orientation Not on file documented as of this encounter Plan of Treatment Not on file documented as of this encounter Visit Diagnoses Not on filedocumented in this encounter Additional Health Concerns Infection Onset Date Last Indicated Resolved Time MRSA Comment:12/04/2013: Wound 12/06/2013 12/06/2013 10/13/2020 5:00 AM CDT documented as of this encounter Care Teams Financial Recruiter Relationship Specialty Start Date End Date Howard Gonzalez PA [address] [place] [address] PCP - General 01/12/11 Kain Ferrera PA [address] [facility] [address] [place] [address] Physician Assistant Product Manager Orthopedic Surgery 04/14/21 Gael Jiménez MD [address] [facility] [address] [place] [address] Anesthesiologist Pain Management 01/12/22 documented as of this encounter
--- OUTSIDE RECORDS SUMMARY | 2024-04-20 13:48 | XMS_ITS | Clinical Summary ---
Author Organization [facility] Address [address] [facility] [place] [address] Phone Care Team Providers Care Test Skein Winder Name Role Phone Howard Gonzalez Primary Care Provider [phone] Priscila Pedraza APRN, SOLUTION DESIGN AND ANALYSIS MANAGER Unavailable Priscila Pedraza APRN, SOLUTION DESIGN AND ANALYSIS MANAGER Unavailable Allergies Active Allergy Reactions Criticality Noted Date Comments Iodinated Contrast Media Rash Medium 04/14/2021 Iodine Hives,Other (see Comments) 01/22/2017 Pt states he turned pink Penicillins Unknown 01/22/2017 Medications amLODIPine (NORVASC) 10 MG Tablet TAKE 1 TABLET BY MOUTH DAILY DIRECTED 1 7 Active hydroCHLOROthiaz berta 12.5 MG Tablet Take 12.5 mg by mouth daily. 2 7 Active simvastatin (ZOCOR) 20 MG Tablet Take 20 mg by mouth daily. 3 7 Active labetalol (NORMODYNE) 200 MG Tablet 1 7 Active metoprolol Succinate (TOPROL-XL) 25 MG TABLET SR 24 HR 25 mg daily. TAKES IN AFTERNOON 3 7 Active butalbital-aceta minophen-caffein e-codeine (FIORICET WITH CODEINE) 36-962-13-30 MG Capsule Take 1 Capsule by mouth every 4 hours as needed for Headaches. Active chlorhexidine (PERIDEX) 0.12 % Solution 15 mL by Swish & Spit route 2 times daily. Active famotidine (PEPCID) 20 MG Tablet Take 20 mg by mouth 2 times daily. Active pentoxifylline (TRENTAL) 400 MG Tablet Controlled Release Take 400 mg by mouth 3 times daily (with meals). Active topiramate (TOPAMAX) 25 MG Tablet Take 25 mg by mouth 2 times daily. Active triamterene-hydr ochlorothiazide (MAXZIDE) 37.5-25 MG Tablet Take 1 Tablet by mouth daily. 3 7 Active aspirin 81 MG Chewable Tablet aspirin 81 mg chewable tablet Chew 1 tablet every day by oral route. Active Diclofenac Sodium (VOLTAREN) 1 % Gel Apply 2 g 4 times daily. 100 g 2 0 Active lisinopril (PRINIVIL, ZESTRIL) 40 MG Tablet Take 40 mg by mouth nightly. Active furosemide (LASIX) 20 MG Tablet Take 1 Tablet by mouth daily as needed. 4 Active omeprazole (PriLOSEC) 20 MG CAPSULE DELAYED RELEASEIndicatio ns:Dysphagia, unspecified type Take 1 Capsule by mouth daily. 90 Capsule 4 Active Active Problems Problem Noted Date Diagnosed Date Dysphagia 11/06/2023 Malignant tumor of tonsil 01/29/20232022 JESUS (obstructive sleep apnea) 01/24/2017 Non morbid obesity 01/24/2017 Essential (primary) hypertension 01/24/2017 Family History Medical History Relation Name Comments Hypertension Father Heart Attack Maternal Grandfather Heart Attack Maternal Grandmother Heart Attack Mother Cancer Paternal Grandmother Relation Name Status Comments Father Alive Maternal Grandfather Maternal Grandmother Mother Paternal Grandmother Social History Tobacco Use Types Packs/Day Years Used Date Smoking Tobacco: Never Smokeless Tobacco: Never Tobacco Cessation:Counseling Given: Not Answered Alcohol Use Standard Drinks/Week Comments Yes 0 (1 standard drink = 0.6 oz pur e alcohol) VERY OCCASIONALLY Sexually Active Control Partners Comments Not Currently Sex and Gender Information Value Date Recorded Sex Assigned at Not on file Legal Sex Male 9:42 PM CDT Gender Identity Not on file Sexual Orientation Not on file Last Filed Vital Signs Vital Sign Reading Time Taken Comments Blood Pressure 98/80 11/06/2023 7:49 AM CDT Pulse 53 11/06/2023 7:49 AM CDT Temperature 37 C (98.6 F) 11/06/2023 7:49 AM CDT Respiratory Rate 15 11/06/2023 7:49 AM CDT Oxygen Saturation 99% 11/06/2023 7:49 AM CDT Inhaled Oxygen Concentration - - Weight 118.8 kg (262 lb) 10/22/2023 9:00 AM CDT Height 177.8 cm (5' 10 ) 10/22/2023 9:00 AM CDT Body Mass Index 37.59 10/22/2023 9:00 AM CDT Plan of Treatment Health Maintenance Due Date Last Done Comments Hepatitis C Virus (HCV) Screening 1960 Pneumococcal Immunization Combined (1 of 2 - PCV) 1966 Pneumococcal Immunization (5 0+ years) (1 of 2 - PCV) 10/03/1979 Zoster Immunization (1 of 2) 10/03/1979 Colonoscopy 2005 Colorectal Cancer Screening 2005 Cologuard 2010 Immunochemical Fecal Occult Blood 2010 PSA Discussion 10/03/2015 Respiratory Syncytial Virus (RSV) Immunization (Adult) (1 - Risk 60-74 years 1-dose series) 2020 SARS-COV-2 Immunization (3 - Pfizer risk series) 10/24/2020 09/26/2020, 09/04/2020 Influenza Immunization (#1) 2023 04/04/2018 DTaP/Tdap/Td Immunization Discontinued 07/13/2016 TdaP Immunization Completed 07/13/2016 Hepatitis B Immunization Aged Out No longer eligible based on patient's age to complete this topic Meningococcal Immunization (ACWY) Aged Out No longer eligible based on patient's age to complete this topic Rotavirus Immunization Aged Out No lo nger eligible based on patient's age to complete this topic Insurance [employer] Care Teams Test Skein Winder Relationship Specialty Start Date End Date Howard Gonzalez PAC [address] [place] [id number] PCP - General Physician Supervisor [employer]ing [employer] 12/19/16 Priscila Pedraza APRN, SOLUTION DESIGN AND ANALYSIS MANAGER [address] [place] [address] Nurse Practitioner Advanced Practice Nurse 01/29/23 Priscila Pedraza APRN, SOLUTION DESIGN AND ANALYSIS MANAGER [address] [place] [address] Nurse Practitioner Advanced Practice Nurse 05/08/23
--- OUTSIDE RECORDS SUMMARY | 2024-04-20 13:48 | XMS_ITS | Referral Summary ---
Author Organization [facility] Address [address] [place] [address] Care Team Providers Care Scheme Technician Name Role Phone Howard Gonzalez Primary Care Provider [phone] Kain Ferrera Unavailable [phone] Gael Jiménez MD Unavailable [phone] Allergies Active Allergy Reactions Criticality Noted Date [...] (03/29/2021): Added automatically from request for surgery [id number] Restless sleeper 01/30/2020 Morning headaches 01/30/2020 Impingement syndrome of right shoulder 9 Overview (12/19/2018): Added automatically from request for surgery [id number] Arthritis of right acromioclavicular joint 12/19 Overview (12/19/2018): Added automatically from request for surgery [id number] Biceps tendinitis on right 12/19/2018 Overview (12/19/2018): Added automatically from request for surgery [id number] Primary osteoarthritis of right knee 03/15/2018 Overview (03/15/2018): Added automatically from request for surgery [id number] Complex tear of medial menis cus of right knee as current injury 10/25/2017 Overview (10/25/2017): Added automatically from request for surgery [id number] JESUS (obstructive sleep apnea) 01/24/2017 Renal artery stenosis 11/02/2016 Obesity 10/14/2016 Obesity with body mass index 30 or greater 10/13 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 Cephalalgia 08/31/2015 Essential hypertension 08/31/2015 Hypercholesterolemia 08/31/2015 Calculus of kidney 02/29/2012 Immunizations Immunization Administration Dates Next Due Influenza, Quadrivalent, Spl it, Preservative Free, Intramuscular 04/04/2018 Social History Tobacco Use Types Packs/Day Years [...] on file 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 Gender Identity Not on file Sexual Orientation [...] 10/31/2023 10:41 AM CDT Plan of Treatment Not on file Medical Devices Implanted Type Area Strong Nitric Operator Device Identifier Shelf Expiration Date Model / Serial / Lot [employer] [id number] Palacos R+G High Viscosity Cement Bone Gentamicin Arthroplasty - [id number] Implanted:Qty: 1 on 04/03/2018 by Sanchez Urbano MD at [facility] [employer] 09/25/2020 [id number] / / [id number] 1024-52-300 Sigma High Performance Tibial Tray Unicondylar Metal Backed Implanted:Qty: 1 on 04/03/2018 by Sanchez Urbano MD at [facility] Right: Knee [employer] Inc [id number] 04/25/2027 1024-52-300 / / [id number] Dep[employer] Inc [id number] Sigma 8mm Cemented Unicompartmental High Performance Knee - [id number] Implanted:Qty: 1 on 04/03/2018 by Sanchez Urbano MD at [facility] Right: Knee [employer] 01/26/2028 [id number] / / [id number] 1024-54-307 Sigma Hp Tibial Insert Fixed Bearing Unicondylar Implanted:Qty: 1 on 04/03/2018 by Sanchez Urbano MD at [facility] Right: Knee [employer] [id number] 04/25/2021 1024-54-307 / / [id number] [employer]hew 2169-3 Reconstitute Scaffold Large Mesh Surgical Collagen Sterile Latex - [id number] Implanted:Qty: 1 on 01/08/2019 by Sanchez Urbano MD at [facility] Right: Shoulder [employer] 07/26/2021 2169-3 / / [id number] [employer] 2504-1 Regenerate Tendon [place] Suture - [id number] Implanted:Qty: 1 on 01/08/2019 by Sanchez Urbano MD at [facility] Right: Shoulder [employer] 07/26/2019 2504-1 / / [id number] [employer] 2503-A Arthroscopic Delivery System [place] Suture Sterile Disposable - [id number] Implanted:Qty: 1 on 01/08/2019 by Sanchez Urbano MD at [facility] Right: Shoulder [employer] 03/04/2019 2503-A / / [id number] [employer] [id number] Attune Cruciate Retain Cementless Knee Left 9 Component Femoral - [id number] Implanted:Qty: 1 on 04/14/2021 by Sanchez Urbano MD at [facility] Left: Knee [employer] 08/25/2028 [id number] / / [id number] [employer] [id number] Attune 5mm Cruciate Retaining Rotate Platform Knee 9 Insert - [id number] Implanted:Qty: 1 on 04/14/2021 by Sanchez Urbano MD at [facility] Left: Knee [employer] [id number] / / [id number] [employer] Inc [id number] Attune Cementless Rotate Platform Knee 9 Baseplate Tibial - [id number] Implanted:Qty: 1 on 04/14/2021 by Sanchez Urbano MD at [facility] Left: Knee [employer] 12/26/2030 [id number] / / [id number] [place] [address] [address] [place] [address] [employer] HMO [employer] [facility] HMO [employer] HMO Advance Directives For more information, please contact: [phone] * Full Code (Latest Code Status on File) Date Activated Date Inactivated Comments 12/22/2022 1:38 PM 12/23/2022 4:22 PM * Full Code Date Activated Date Inactivated Comments 12/22/2022 7:49 AM 12/22/2022 10:20 AM * Full Code Date Activated Date Inactivated Comments 04/03/2018 1:17 PM 04/04/2018 7:15 PM Care Teams Scheme Technician Relationship Specialty Start Date End Date Howard Gonzalez PA [address] [place] [address] PCP - General 01/12/11 Kain Ferrera PA [address] [place] [address] Physician Web Interface Developer Orthopedic Surgery 04/14/21 Gael Jiménez MD [address] [place] [address] Anesthesiologist Pain Management 01/12/22
--- OUTSIDE RECORDS SUMMARY | 2024-04-20 13:48 | XMS_ITS | Clinical Summary ---
Author Organization [facility] Address [address] [place] [address] Care Team Providers Care Location Manager Name Role Phone Unavailable Primary Care Provider Unavailabl e Social History Tobacco Use Types Packs/Day Years Used Date Smoking Tobacco: Never Assessed Sex and Gender Information Value Date Recorded Sex Assigned at Not on file Legal Sex Male 8:49 PM CDT Gender Identity Not on file Sexual Orientation Not on file Last Filed Vital Signs Vital Sign Reading Time Taken Comments Blood Pressure 144/84 09/13/2017 3:25 PM CDT Pulse 66 09/13/2017 3:25 PM CDT Temperature - - Respiratory Rate - - Oxygen Saturation - - Inhaled Oxygen Concentration - - Weight 115.9 kg (255 lb 8 oz) 09/13/2017 3:25 PM CDT Height 177.8 cm (5' 10 ) 09/13/2017 3:25 PM CDT Body Mass Index 36.66 09/13/2017 3:25 PM CDT Plan of Treatment Health Maintenance Due Date Last Done Comments Colorectal Cancer Screening Colonoscopy (10 Years) 1960 Annual Physical 10/03/1963 Hepatitis C 1978 DTaP, Tdap and Td Vaccines ( 1 - Tdap) 10/03/1979 Zoster Vaccines (1 of 2) 2010 COVID-19 Vaccine ( - 2023-2 5 season) 2023 Influenza Adult (#1) 2023 RSV Immunization or 60+ Years (1 - 1-dose 75+ series) 10/03/2035 Meningococcal B Vaccine Aged Out No l onger eligible based on patient's age to complete this topic Meningococcal Vaccine Aged Out No aurora ayse eligible based on patient's age to complete this topic Pneumococcal Vaccine: Pediat rics (0 to 5 Years) and At-Risk Patients (6 to 64 Years) Aged Out No longer eligible b ased on patient's age to complete this topic RSV Immunizations Under 20 Months Aged Out No longer eligible based on patient's age to complete this topic
--- OUTSIDE RECORDS SUMMARY | 2024-04-20 13:48 | XMS_ITS | Encounter Summary ---
Author Organization [facility] Address [address] [place] [address] Phone Care Team Providers Care Broke Beater Machine Operator Name Role Phone Hardeep Alvarez MD Unavailable Howard Gonzalez Primary Care Provider [phone] Priscila Pedraza APRN, TRANSPORTATION DIRECTOR Unavailable Priscila Pedraza APRN, TRANSPORTATION DIRECTOR Unavailable Encounter Details Date Type Department Care Team (Late st Contact Info) Description 09/22/2019 Transcribe Orders [facility] Preop/Pacu II [address] [place] [address] Marcelo Bowers MD [address] [place] [address] Social History Tobacco Use Types Packs/Day Years Used Date Smoking Tobacco: Never Smokeless Tobacco: Never Alcohol Use Standard Drinks/Week Comments No 0 (1 standard drink = 0.6 oz pur e alcohol) Sex and Gender Information Value Date Recorded Sex Assigned at Not on file Legal Sex Male 9:42 PM CDT Gender Identity Not on file Sexual Orientation Not on file COVID-19 Exposure Response Date Recorded In the last month, have you been in contact with someone who was confirmed or suspected to have Coronavirus / COVID-19? No / Unsure 09/25/2019 9:21 AM CDT documented as of this encounter Plan of Treatment Not on file documented as of this encounter Visit Diagnoses Not on filedocumented in this encounter Care Teams Broke Beater Machine Operator Relationship Specialty Start Date End Date Howard Gonzalez PAC [address] [place] [address] PCP - General Physician Voice Teacher 12/19/16 Hardeep Alvarez MD Consulting Physician Pulmonary Disease 12/19/16 3 Priscila Pedraza APRN, TRANSPORTATION DIRECTOR [address] [place] [address] Nurse Practitioner Advanced Practice Nurse 01/29/23 Priscila Pedraza APRN, TRANSPORTATION DIRECTOR [address] [place] [address] Nurse Practitioner Advanced Practice Nurse 05/08/23 documented as of this encounter
[2024-04-20 13:50] VITALS: BP 140/96; PULSE 72; RESP 16; O2SAT 97
--- NOTE | 2024-04-20 14:19 | ED.SKABFB ---
HPI - Skin/Abscess/Foreign Bdy General Chief complaint: Skin/Abscess/Foreign Body Stated complaint: redness to right upper thigh Source: patient Mode of arrival: ambulatory Limitations: no limitations History of Present Illness HPI narrative: Patient is a 63-year-old male with a 1 week history of right inner thigh worsening redness. No injuries. No abscess formations. There was a hardened area that resolved on its own. MD complaint: rash ( Right inner thigh) Onset (ago): week(s) ( 1) Tetanus up to date: unsure Location: RLE ( inner thigh) Severity: moderate Severity scale (1-10): 4 Quality: burning Pain Consistency: constant Relieving factors: none Exacerbating factors: none Context: other ( patient has a right inner thigh redness for the past week) Associated symptoms: denies other symptoms Treatments prior to arrival: none Related Data Home Medications ?Medication ?Instructions ?Recorded ?Confirmed ?Last Taken ?Type amlodipine 10 mg tablet 10 mg PO DAILY 12/28/19 02/07/21 Unknown History lisinopril 20 mg tablet 20 mg PO DAILY 12/28/19 02/07/21 Unknown History metoprolol succinate 25 mg capsule 12.5 mg PO DAILY 12/28/19 02/07/21 Unknown History sprinkle, ext. release 24 hr simvastatin 20 mg tablet 20 mg PO DAILY 12/28/19 02/07/21 Unknown History aspirin 81 mg chewable tablet 81 mg PO DAILY 12/25/23 Unknown History Allergies Allergy/AdvReac Type Severity Reaction Status Date / Time iohexol (From contrast - CT, Allergy Redness of Verified 12/25/23 13:38 X-RAY) Skin Penicillins Allergy Unknown Verified 12/25/23 13:38 Review of Systems Review of Systems: All systems reviewed & are unremarkable except as noted in HPI and below Constitutional: Constitutional: Reports no additional constitutional complaints Eyes: Eyes: Reports no additional eye complaints ENT: Reports system reviewed and no additional complaints, except as documented Cardiovascular: Cardiovascular: Reports no additional cardiovascular complaints Respiratory: Respiratory: Reports no additional respiratory complaints Gastrointestinal: Gastrointestinal: Reports no additional gastrointestinal complaints Genitourinary: Genitourinary: Reports no additional male genitourinary complaints Musculoskeletal: Musculoskeletal: Reports no additional musculoskeletal complaints Integumentary/Breasts: Skin/Breast: Reports system reviewed and no additional complaints, except as docu Neurologic: Reports system reviewed and no additional complaints, except as documented Psychiatric: Psychiatric: Reports no additional psychiatric complaints Endocrine: Endocrine: Reports no additional endocrine complaints Hematologic/Lymphatic: Hematologic/Lymphatic: Reports no additional hematologic/lymphatic complaints Allergic/Immunologic: Allergic/Immunologic: Reports no additional allergic/immunologic complaints PMFSH Past Medical History Medical History Renal artery stenosis Tonsil cancer 2003, 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 Hyperlipidemia Hypertension Surgical History Surgical History Hx of tonsillectomy right side, 2003, due to cancer Social History Social History Smoking status: Never smoker Alcohol intake: current Substance use: never Substance use type: does not use Do You Feel Safe in your Home?: Yes Lack of Transportation: No Lack of Food: Never True Current Housing: I Have Housing Concerned About Future Housing: No Difficulty Paying Gas/Electric Bills: YES Difficulty Paying for Meds: No Currently Unemployed: Decline to Answer Education: Decline to Answer Difficulty w/ Childcare or Family Care: No Exam Const: General: healthy appearing Nutritional Appearance: well nourished Orientation/consciousness: patient oriented x3 Limitations: no limitations HENMT: Head: normal to inspection Ears: external ears normal Face/Nose/Sinus: Normal external nose present Eyes: Conjunctivae: conjunctivae normal Pupils: Equal, round and reactive pupils present EOM: EOMs intact bilaterally Neck: Neck: normal visual inspection Chest: Chest palpation & inspection: normal inspection of the chest Resp: Effort & Inspection: normal respiratory effort and not labored Auscultation: clear to auscultation bilaterally and no crackles Cardio: Rate: regular rate Rhythm: regular rhythm Heart sounds: no murmurs GI: Inspection: non-distended Auscultation: normal bowel sounds : General: Yes bladder normal to palpation Back/Spine/Pelvis: Back: no CVA tenderness Skin: General skin exam: normal color Rashes: rash noted Wounds: no wounds Other: right inner thigh has moderate sized irregular shaped erythema of cellulitis without abscess formation; this area is not circumferential; there is no linear streaking Neuro: General: patient oriented x3 Cranial nerves: Yes Nystagmus not present Speech: normal speech Extrem: General: normal to inspection Psych: Mental Status: mental status grossly normal Affect: normal affect Attitude: cooperative Course Vital Signs Vital signs: Vital Signs Temperature 36.8 C 04/20/24 13:45 Pulse Rate 71 04/20/24 13:45 Respiratory Rate 20 04/20/24 13:45 Blood Pressure 140/96 H 04/20/24 13:45 Pulse Oximetry 100 04/20/24 13:45 Oxygen Delivery Room Air 04/20/24 13:45 Temperature 36.8 C 04/20/24 13:45 Pulse Rate 72 04/20/24 13:50 Respiratory Rate 16 04/20/24 13:50 Blood Pressure 140/96 H 04/20/24 13:50 Pulse Oximetry 97 04/20/24 13:50 Oxygen Delivery Room Air 04/20/24 13:50 MDM - Skin/Abscess/Foreign Bdy MDM Narrative Medical decision making narrative: patient is a 63-year-old male with right inner thigh cellulitis. We will do oral clindamycin. Discharge Plan Discharge Clinical Impression: Cellulitis of right thigh Patient Disposition: Home, Self-Care Condition: Stable Instructions: Antibiotic Form, Cellulitis (ED) Patient Language: Citizen Of [place] Prescriptions: New clindamycin HCl 300 mg capsule 300 mg PO TID 10 Days Qty: 30 0RF No Action lisinopril 20 mg Tablet 20 mg PO DAILY amlodipine 10 mg Tablet 10 mg PO DAILY simvastatin 20 mg Tablet 20 mg PO DAILY metoprolol succinate 25 mg Capsule,Sprinkle,Er 24hr 12.5 mg PO DAILY aspirin 81 mg tablet,chewable 81 mg PO DAILY Follow-up/Referrals: Lisa,HENRIQUE Reynolds [Primary Care Provider] - Time of Disposition: 14:18
[2024-04-20] MEDS: CLINDAMYCIN HCL 150 MG CAP 300 MG PO (14:25)
--- OUTSIDE RECORDS SUMMARY | 2024-04-20 14:28 | XMS_ITS | Clinical Summary ---
Author Organization [facility] Address [address] [place] [address] Care Team Providers Care Legend Maker Name Role Phone Howard Gonzalez Primary Care Provider [phone] Kain Ferrera Unavailable Gael Jiménez MD Unavailable Allergies Active Allergy Reactions Criticality Noted [...] (03/29/2021): Added automatically from request for surgery [id number] Restless sleeper 01/30/2020 Morning headaches 01/30/2020 Impingement syndrome of right shoulder 9 Overview (12/19/2018): Added automatically from request for surgery [id number] Arthritis of right acromioclavicular joint 12/19 Overview (12/19/2018): Added automatically from request for surgery [id number] Biceps tendinitis on right 12/19/2018 Overview (12/19/2018): Added automatically from request for surgery [id number] Primary osteoarthritis of right knee 03/15/2018 Overview (03/15/2018): Added automatically from request for surgery [id number] Complex tear of medial menis cus of right knee as current injury 10/25/2017 Overview (10/25/2017): Added automatically from request for surgery [id number] JESUS (obstructive sleep apnea) 01/24/2017 Renal artery [...] on file Legal Sex Male 2:05 AM PROTECTIVE CLOTHING ISSUER Gender Identity Not on file Sexual Orientation [...] this topic Medical Devices Implanted Type Area Activities Officer Device Identifier Shelf Expiration Date Model / Serial / Lot [employer] [id number] Palacos R+G High Viscosity Cement Bone Gentamicin Arthroplasty - [id number] Implanted:Qty: 1 on 04/03/2018 by Sanchez Urbano MD at [facility] [employer] 09/25/2020 [id number] / / [id number] 1024-52-300 Sigma High Performance Tibial Tray Unicondylar Metal Backed Implanted:Qty: 1 on 04/03/2018 by Sanchez Urbano MD at [facility] Right: Knee [employer] C1776 04/25/2027 1024-52-300 / / [id number] [employer] [id number] Sigma 8mm Cemented Unicompartmental High Performance Knee - [id number] Implanted:Qty: 1 on 04/03/2018 by Sanchez Urbano MD at [facility] Right: Knee [employer] 01/26/2028 [id number] / / [id number] 1024-54-307 Sigma Hp Tibial Insert Fixed Bearing Unicondylar Implanted:Qty: 1 on 04/03/2018 by Sanchez Urbano MD at [facility] Right: Knee [employer] C1776 04/25/2021 1024-54-307 / / [id number] [employer] 2169-3 Reconstitute Scaffold Large Mesh Surgical Collagen Sterile Latex - [id number] Implanted:Qty: 1 on 01/08/2019 by Sanchez Urbano MD at [facility] Right: Shoulder [employer] 07/26/2021 2169-3 / / [id number] [employer] 2504-1 Regenerate Tendon [place] Suture - [id number] Implanted:Qty: 1 on 01/08/2019 by Sanchez Urbano MD at [facility] Right: Shoulder [employer] 07/26/2019 2504-1 / / [id number] [employer] 2503-A Arthroscopic Delivery System [place] Suture Sterile Disposable - [id number] Implanted:Qty: 1 on 01/08/2019 by Sanchez Urbano MD at [facility] Right: Shoulder [employer] 03/04/2019 2503-A / / [id number] [employer] [id number] Attune Cruciate Retain Cementless Knee Left 9 Component Femoral - [id number] Implanted:Qty: 1 on 04/14/2021 by Sanchez Urbano MD at [facility] Left: Knee [employer] 08/25/2028 [id number] / / [id number] [employer] [id number] Attune 5mm Cruciate Retaining Rotate Platform Knee 9 Insert - [id number] Implanted:Qty: 1 on 04/14/2021 by Sanchez Urbano MD at [facility] Left: Knee [employer] Inc [id number] / / [id number] [employer] Inc [id number] Attune Cementless Rotate Platform Knee 9 Baseplate Tibial - [id number] Implanted:Qty: 1 on 04/14/2021 by Sanchez Urbano MD at [facility] Left: Knee [employer] 12/26/2030 [id number] / / [id number] Insurance [facility] HMO/PPO Address: [facility] [id number] [place] [id number] [facility] [place] [address] [facility] H[facility] Advance Directives For more information, please contact: [phone] * Full Code (Latest Code Status on File) Date Activated Date Inactivated Comments 12/22/2022 1:38 PM 12/23/2022 4:22 PM * Full Code Date Activated Date Inactivated Comments 12/22/2022 7:49 AM 12/22/2022 10:20 AM * Full Code Date Activated Date Inactivated Comments 04/03/2018 1:17 PM 04/04/2018 7:15 PM Care Teams Legend Maker Relationship Specialty Start Date End Date Howard Gonzalez PA [address] [place] [address] PCP - General 01/12/11 Kain Ferrera PA [address] [place] [address] Physician Bladder Cleaner Orthopedic Surgery 04/14/21 Gael Jiménez MD [address] [place] [address] Anesthesiologist Pain Management 01/12/22
--- OUTSIDE RECORDS SUMMARY | 2024-04-20 14:28 | XMS_ITS | Encounter Summary ---
Author Organization [facility] Address [address] [place] [address] Phone Care Team Providers Care Receivables Specialist Name Role Phone Hardeep Alvarez MD Unavailable Howard Gonzalez Primary Care Provider [phone] Priscila Pedraza APRN, FIRST BREAKER FEEDER Unavailable Priscila Pedraza APRN, FIRST BREAKER FEEDER Unavailable Encounter Details Date Type Department Care Team (Late st Contact Info) Description 09/22/2019 Transcribe Orders [facility] Preop/Pacu II [address] [place] [address] Marcelo Bowers MD [address] [place] [address] Social History Tobacco Use Types Packs/Day Years [...] on filedocumented in this encounter Care Teams Receivables Specialist Relationship Specialty Start Date End Date Howard Gonzalez PAC [address] [place] [address] PCP - General Physician Optical Instrument Specialist 12/19/16 Hardeep Alvarez MD Consulting Physician Pulmonary Disease 12/19/16 3 Priscila Pedraza APRN, FIRST BREAKER FEEDER [address] [place] [address] Nurse Practitioner Advanced Practice Nurse 01/29/23 Priscila Pedraza APRN, FIRST BREAKER FEEDER [address] [place] [address] Nurse Practitioner Advanced Practice Nurse 05/08/23 documented as of this encounter
--- OUTSIDE RECORDS SUMMARY | 2024-04-20 14:28 | XMS_ITS | Clinical Summary ---
Author Organization [facility] Address [address] [place] [address] Care Team Providers Care Call Center Associate Name Role Phone Unavailable Primary Care Provider [...]
--- OUTSIDE RECORDS SUMMARY | 2024-04-20 14:28 | XMS_ITS | Referral Summary ---
Author Organization [facility] Address [address] [place] [address] Care Team Providers Care Distribution Spec Name Role Phone Howard Gonzalez Primary Care Provider [phone] Kain Ferrera Unavailable [phone] Gael Jiménez MD Unavailable [phone] Allergies Active Allergy Reactions Criticality Noted Date [...] (03/29/2021): Added automatically from request for surgery [id number] Restless sleeper 01/30/2020 Morning headaches 01/30/2020 Impingement syndrome of right shoulder 9 Overview (12/19/2018): Added automatically from request for surgery [id number] Arthritis of right acromioclavicular joint 12/19 Overview (12/19/2018): Added automatically from request for surgery [id number] Biceps tendinitis on right 12/19/2018 Overview (12/19/2018): Added automatically from request for surgery [id number] Primary osteoarthritis of right knee 03/15/2018 Overview (03/15/2018): Added automatically from request for surgery [id number] Complex tear of medial menis cus of right knee as current injury 10/25/2017 Overview (10/25/2017): Added automatically from request for surgery [id number] JESUS (obstructive sleep apnea) 01/24/2017 Renal artery [...] on file Legal Sex Male 2: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 CIRCUIT TESTER Gender Identity Not on file Sexual Orientation [...] on file Medical Devices Implanted Type Area Rfid Specialist Device Identifier Shelf Expiration Date Model / Serial / Lot [employer] [id number] [place] R+G High Viscosity Cement Bone Gentamicin Arthroplasty - [id number] Implanted:Qty: 1 on 04/03/2018 by Sanchez Urbano MD at [facility] [employer] 09/25/2020 [id number] / / [id number] 1024-52-300 Sigma High Performance Tibial Tray Unicondylar Metal Backed Implanted:Qty: 1 on 04/03/2018 by Sanchez Urbano MD at [facility] Right: Knee [employer] [id number] 04/25/2027 1024-52-300 / / [id number] [employer] [id number] Sigma 8mm Cemented Unicompartmental High Performance Knee - [id number] Implanted:Qty: 1 on 04/03/2018 by Sanchez Urbano MD at [facility] Right: Knee [employer] 01/26/2028 [id number] / / [id number] 1024-54-307 Sigma Hp Tibial Insert Fixed Bearing Unicondylar Implanted:Qty: 1 on 04/03/2018 by Sanchez Urbano MD at [facility] Right: Knee [employer] [id number] 04/25/2021 1024-54-307 / / [id number] [employer] 2169-3 Reconstitute Scaffold Large Mesh Surgical Collagen Sterile Latex - [id number] Implanted:Qty: 1 on 01/08/2019 by Sanchez Urbano MD at [facility] Right: Shoulder [employer] 07/26/2021 2169-3 / / [id number] [employer] 2504-1 Regenerate Tendon [place] Suture - [id number] Implanted:Qty: 1 on 01/08/2019 by Sanchez Urbano MD at [facility] Right: Shoulder [employer] 07/26/2019 2504-1 / / [id number] [employer] 2503-A Arthroscopic Delivery System [place] Suture Sterile Disposable - [id number] Implanted:Qty: 1 on 01/08/2019 by Sanchez Urbano MD at [facility] Right: Shoulder [employer] 03/04/2019 2503-A / / [id number] [employer] [id number] Attune Cruciate Retain Cementless Knee Left 9 Component Femoral - [id number] Implanted:Qty: 1 on 04/14/2021 by Sanchez Urbano MD at [facility] Left: Knee [employer] 08/25/2028 [id number] / / [id number] [employer] [id number] Attune 5mm Cruciate Retaining Rotate Platform Knee 9 Insert - [id number] Implanted:Qty: 1 on 04/14/2021 by Sanchez Urbano MD at [facility] Left: Knee [employer] [id number] / / [id number] [employer] [id number] Attune Cementless Rotate Platform Knee 9 Baseplate Tibial - [id number] Implanted:Qty: 1 on 04/14/2021 by Sanchez Urbano MD at [facility] Left: Knee [employer] 12/26/2030 [id number] / / [id number] [place] [address] [place] [address] [employer] HMO [employer] [facility] HMO [employer] HMO Advance Directives For more information, please contact: [phone] * Full Code (Latest Code Status on File) Date Activated Date Inactivated Comments 12/22/2022 1:38 PM 12/23/2022 4:22 PM * Full Code Date Activated Date Inactivated Comments 12/22/2022 7:49 AM 12/22/2022 10:20 AM * Full Code Date Activated Date Inactivated Comments 04/03/2018 1:17 PM 04/04/2018 7:15 PM Care Teams Distribution Spec Relationship Specialty Start Date End Date Howard Gonzalez PA [address] [place] [address] PCP - General 01/12/11 Kain Ferrera PA [address] [facility] [address] [address] [place] [address] Physician Flight Surgeon Orthopedic Surgery 04/14/21 Gael Jiménez MD [address] [facility] [address] [place] [address] Anesthesiologist Pain Management 01/12/22
--- OUTSIDE RECORDS SUMMARY | 2024-04-20 14:28 | XMS_ITS | Clinical Summary ---
Author Organization [facility] Address [address] [facility] [place] [address] Phone Care Team Providers Care Embossing Unit Operator Name Role Phone Howard Gonzalez Primary Care Provider [phone] Priscila Pedraza APRN, FRONT OFFICE CLERK Unavailable Priscila Pedraza APRN, FRONT OFFICE CLERK Unavailable Allergies Active Allergy Reactions Criticality Noted [...] Active butalbital-aceta minophen-caffein e-codeine (FIORICET WITH CODEINE) 42-384-69-30 MG Capsule Take 1 Capsule by mouth [...] patient's age to complete this topic Insurance [employer] Care Teams Embossing Unit Operator Relationship Specialty Start Date End Date Howard Gonzalez PAC [address] [place] [id number] PCP - General Physician High School Teacher 12/19/16 Priscila Pedraza APRN, FRONT OFFICE CLERK [address] [place] [address] Nurse Practitioner Advanced Practice Nurse 01/29/23 Priscila Pedraza APRN, FRONT OFFICE CLERK [address] [place] [address] Nurse Practitioner Advanced Practice Nurse 05/08/23
--- OUTSIDE RECORDS SUMMARY | 2024-04-20 14:28 | XMS_ITS | Encounter Summary ---
Author Organization [facility] Address [address] [place] [address] Phone Care Team Providers Care Nutrition Technician Name Role Phone Howard Gonzalez Primary Care Provider [phone] Kain Ferrera Unavailable [phone] Gael Jiménez MD Unavailable [phone] Encounter Details Date Type Department Care Team (Late st Contact Info) Description 09/26/2019 Telephone [facility] Cardiology [address] [facility] [address]th [place] [address] [place] [address] Petey Simental MD [address] [facility] [address] [place] [address] Social History Tobacco Use Types Packs/Day Years Used Date Smoking Tobacco: Never Smokeless Tobacco: Never Alcohol Use Standard Drinks/Week Comments No 0 (1 standard drink = 0.6 oz pur e alcohol) Sex and Gender Information Value Date Recorded Sex Assigned at Not on file Legal 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 Male 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 Gender Identity Not on file Sexual Orientation Not on file documented as of this encounter Plan of Treatment Not on file documented as of this encounter Visit Diagnoses Not on filedocumented in this encounter Additional Health Concerns Infection Onset Date Last Indicated Resolved Time MRSA Comment:12/04/2013: Wound 12/06/2013 12/06/2013 10/13/2020 5:00 AM CDT documented as of this encounter Care Teams Nutrition Technician Relationship Specialty Start Date End Date Howard Gonzalez PA [address] [place] [address] PCP - General 01/12/11 Kain Ferrera PA [address] [facility] [address] [place] [address] Physician Card Grinder Helper Orthopedic Surgery 04/14/21 Gael Jiménez MD [address] [facility] [address] [place] [address] Anesthesiologist Pain Management 01/12/22 documented as of this encounter
[2024-04-20 14:33] VITALS: BP 100/63; PULSE 66; RESP 20; O2SAT 96
== END 2024-04-20 14:35 | disposition home or self-care (01) ==
PROVIDERS: Emergency Provider Emergency Medicine; PCP Physician Assistant
DX: L03.115 Cellulitis of right lower limb (principal); I10 Essential (primary) hypertension; E78.5 Hyperlipidemia, unspecified; Z85.89 Personal history of malignant neoplasm of other organs and systems
CPT/HCPCS: 99283; A9270